=== PATIENT | male | born 1955 | race Two or more races ===

== ENCOUNTER 2025-02-14 06:56 | Inpatient (IN) | payer MEDICARE ==
[2025-02-14] VITALS (11 sets, daily range): BP systolic 113–129; BP diastolic 65–77; PULSE 50–58; RESP 12–19; TEMP 97.5–98.2; O2SAT 94–98
[~2025-02-14] VITALS: Ht 175.3 cm; Wt 93.6 kg
[~2025-02-14 06:56] MED LIST: AMLO1TAB23 PO; ASPI1TAB19 PO; ATOR20TA50 PO; CYAN1TAB11 PO; LOSA-534 PO
[2025-02-14] MEDS: IODIXANOL 320MG/ML 100ML BTL IV ONE ×2 (07:33→08:28)
[2025-02-14] MEDS: VERAPAMIL 2.5MG/ML INJ 2ML VIAL IV ONE (07:54)
[2025-02-14] MEDS: ANGIOMAX 250 MG VIAL IV ONE (07:54)
[2025-02-14] MEDS: fentaNYL CITRATE 100 MCG/2 ML VL ONE (07:54)
[2025-02-14] MEDS: MIDAZOLAM HCL 2MG/2ML 2ml VIAL (1mg/ml) ONE (07:55)
[2025-02-14] MEDS: SODIUM CHL 0.9% 50 ML ONE (07:55)
[2025-02-14] MEDS: LIDOCAINE 2%HCL (LOCAL ANESTH.) INJ 20ML MDV ONE (07:55)
[2025-02-14] MEDS: TICAGRELOR 90 MG TAB ONE (08:40)
[2025-02-14] MEDS ORDERED: MORPHINE SULFATE INJ 2 MG/ml SYRG IV PRN (08:45)
[2025-02-14] MEDS ORDERED: NITROGLYCERIN 0.4 MG SL TAB SL PRN (08:45)
--- NOTE | 2025-02-14 08:45 | DVHOP2 ---
Operative Report Operative Report CARDIAC DRILL OPERATOR AUTOMATIC PROCEDURE REPORT [place], [place] Date of Service: 02/14/25 Spinning Frame Fixer: John Paul Driver MD PROCEDURES PERFORMED: Coronary angiogram, left heart catheterization, conscious sedation administration and supervision, less than 15 minutes; fluoroscopy use and interpretation. sedation 15-30 mins, PTCA 1 vessel, PCI 1 vessel PREOPERATIVE DIAGNOSES: high risk CTA with Diag lesion >85% POSTOP DIAGNOSIS: 1v cad DESCRIPTION OF PROCEDURE: The patient or appropriate family signed informed consent understanding the risks, benefits and alternatives of the procedure, they wished to proceed. The patient was brought to the cardiac medical laboratory manager [place]. The patient was prepped in a sterile fashion. Sedation was used per cardiac cath protocol. I administered 2 mL of 2% lidocaine to the right wrist. With an antegrade front wall puncture. I cannulated the right radial artery and placed a 6-Colombian Glidesheath slender. Next, an intra-arterial spasmolytic was administered. Next, a - 5 Colombian Jackson catheter andXB 3.5 guide and were used for coronary angiogram and LVEDP measurement and pressure pullback. At the completion of procedure, all guides and wires were removed, and there were no immediate complications. FINDINGS: RCA: Moderate vessel off the right sinus of Valsalva, there is no severe flow limiting stenosis. prox mid and distal RCA are patent with diffuse luminal irregularities rpDA has 20% stenosis LEFT MAIN: Moderate size left main, it bifurcates into LAD and circumflex. no severe stenosis CIRCUMFLEX: Moderate caliber vessel coming off the left main with no flow limiting stenosis. LAD: LAD is a moderate caliber vessel coming of the left main. D1 has a prox 99% stenosis. D2 has an ostial 40% plaque. prox and mid LAD are patent with mild plaquing. mid to distal LAD has 40% stenosis INTERVENTION: We decided to proceed with coronary intervention. I started with a 6F ___ xb3.5 _ Guide to intubate the LM __. Angiomax bolus and gtt was started. Following this, I decided to wire using an .014 BMW across the culprit lesion with ease. At this time, we performed balloon angioplasty with a _2.5 x 12 mm balloon 12___ ATMS over __15__ seconds wit2__ number of inflations. Following this, I decided to place a stent using a 2.5 x 15 mm onyx____ stent inflated up to __16 __ ATMS over 15 seconds with two separate inflations. Following this, the stent balloon removed and angio performed showing 0% residual stenosis. GONZÁLEZ pre/post: 3./3 CONCLUSIONS: 1. s/p pci to D1 99% prox lesion PLAN: Aggressive risk factor modification and medical management for the patient. DAPT x 1 year uninterrupted JOHN PAUL DRIVER MD Feb 14, 2025 08:45
--- NOTE | 2025-02-14 12:59 | DVHHP2 ---
Review of Systems Allergies: Coded Allergies: NO KNOWN ALLERGIES (Unverified , 02/11/25) Medications Current Medications Medications Dose Ordered Sig/Rosalie Route Start Time Stop Time Status Last Admin Dose Admin Nitroglycerin 0.4 mg Q5MINP PRN SL 02/14/25 08:45 Morphine Sulfate 2 mg Q30M PRN IV 02/14/25 08:45 Clopidogrel Bisulfate 75 mg DAILY PO 02/15/25 10:00 Exam Vital Signs Vital Signs Date Time Temp Pulse Resp B/P (MAP) Pulse Ox O2 Delivery O2 Flow Rate FiO2 02/14/25 11:11 53 12 128/72 (90) 97 02/14/25 09:56 98.2 98.2 Assessment/Plan Assessment/Plan SEE DICTATED NOTE Plan discussed with: Patient, Spouse Date of Service: Feb 14, 2025 Billing Provider: JAGUAR GARCIA MD Common Visit Codes: 43067-BOIEBBB INP/OBS CARE (HIGH) Secondary Visit Codes: 75804-EYPMPGLX CARE PLAN 30 MINUTES JAGUAR GARCIA MD Feb 14, 2025 12:59
--- NOTE | 2025-02-14 13:31 | DVH ---
EXAM: XY CHEST PORTABLE Indication: CAD Technique: Single frontal view of the chest was obtained Comparison: None FINDINGS: Lines and Tubes: None Lungs: No focal consolidation. Pleura: No effusion. No pneumothorax. Cardiomediastinal contours: Cardiomegaly. Bones: No acute osseous abnormality. IMPRESSION: Cardiomegaly.
--- NOTE | 2025-02-14 14:23 | DVHHP ---
HISTORY OF PRESENT ILLNESS: The patient is a 69-year-old gentleman who has come in with episodes of ongoing chest pain, which have been increasing in frequency and intensity. The patient denies any shortness of breath. No nausea or vomiting. No dizziness or syncope. No pedal edema. REVIEW OF SYSTEMS: Review of rest of systems is otherwise currently negative. PAST MEDICAL HISTORY: Significant for hypertension and hyperlipidemia. MEDICATIONS: He takes Lipitor, amlodipine, and losartan. ALLERGIES: No known drug allergies. SOCIAL HISTORY: He does not smoke. He drinks about 3 beers a day. He lives at home with his . FAMILY HISTORY: Negative. PHYSICAL EXAMINATION: GENERAL: The patient is awake and alert. VITAL SIGNS: Temperature of 98.2, pulse 50 per minute, blood pressure 117/77. SHEENT: Unremarkable. NECK: There is no JVD, no pedal edema. LUNGS: Equal bilaterally. No added sounds. CARDIOVASCULAR: S1 and S2 is regular. There are no murmurs. ABDOMEN: Soft. There is no organomegaly. NEUROLOGIC: Nonfocal. MUSCULOSKELETAL: Normal. ASSESSMENT AND PLAN: * Hypertension for which the patient's blood pressure will be monitored. * Hyperlipidemia. * Coronary artery disease, status post stent placement in the diagonal. * Obesity. * Advanced care planning: The patient is a full code. Time spent was 18 minutes. MD NOAH Bah/LUIS TID: [id number] RECEIPT: [id number]
[2025-02-14] MEDS: CLOPIDOGREL BISULFATE 75 MG TAB PO ONE (16:49)
[2025-02-14] MEDS: ATORVASTATIN 20 MG TAB PO SCH (21:13)
[2025-02-15 01:00] VITALS: BP 126/80; PULSE 57; RESP 20; TEMP 97.8; O2SAT 96
[2025-02-15 05:00] VITALS: BP 124/74; PULSE 55; RESP 18; TEMP 98.1; O2SAT 95
[2025-02-15 06:30] LABS: Hematocrit 38.9 % (41.0-53.0); Hemoglobin 13.4 g/dL (13.5-17.5); Mean Corpuscular Hemoglobin 30.6 pg (28.0-32.0); Mean Corpuscular Volume 88.7 fL (80.0-100.0); Nucleated Red Blood Cells % 0.0 %
[2025-02-15 06:48] LABS: Alanine Aminotransferase 15 U/L (7-40); Albumin 4.1 g/dL (3.2-4.8); Alkaline Phosphatase 66 U/L (46-116); Anion Gap 7 (5-15); BUN/Creatinine Ratio 14.3 (10.0-20.0); Bilirubin, Total 1.0 mg/dL (0.2-1.0); Blood Urea Nitrogen 15 mg/dL (9-23); Calcium 9.6 mg/dL (8.7-10.4); Carbon Dioxide 24 mmol/L (20-31); Cholesterol 110 mg/dL (< 200); Glucose 93 mg/dL (74-106); Potassium 3.9 mmol/L (3.5-5.1); Sodium 141 mmol/L (136-145); Total Protein 6.2 g/dL (5.7-8.2); Triglycerides 109 mg/dL (< 150)
[2025-02-15 07:02] LABS: Chloride 110 mmol/L (98-107); HDL Cholesterol 38 mg/dL (40-59)
[2025-02-15 08:00] VITALS: PULSE 55
[2025-02-15 09:00] VITALS: BP 120/64; PULSE 63; RESP 18; TEMP 97.4; O2SAT 95
[2025-02-15] MEDS: CLOPIDOGREL BISULFATE 75 MG TAB PO SCH (09:55)
--- NOTE | 2025-02-15 11:46 | DVHDS2 ---
Discharge Summary Date of Admission Feb 14, 2025 at 08:45 Date of Discharge: Feb 15, 2025 Labs/Diagnostic Data: Laboratory Results Test 02/15/25 05:31 White Blood Count 5.3 10^3/uL (4.4-10.8) Red Blood Count 4.39 10^6/uL (4.5-5.90) Hemoglobin 13.4 g/dL (13.5-17.5) Hematocrit 38.9 % (41.0-53.0) Mean Corpuscular Volume 88.7 fL (80.0-100.0) Mean Corpuscular Hemoglobin 30.6 pg (28.0-32.0) Mean Corpuscular Hemoglobin Concent 34.5 g/dL (32.0-36.0) Red Cell Distribution Width 14.2 % (11.8-14.3) Platelet Count 225 10^3/uL (140-450) Mean Platelet Volume 7.5 fL (6.9-10.8) Neutrophils (%) (Auto) 62.0 % (37.0-80.0) Lymphocytes (%) (Auto) 22.8 % (10.0-50.0) Monocytes (%) (Auto) 9.6 % (0.0-12.0) Eosinophils (%) (Auto) 4.8 % (0.0-7.0) Basophils (%) (Auto) 0.8 % (0.0-2.0) Neutrophils # (Auto) 3.3 10 ^3/uL (1.6-8.6) Lymphocytes # (Auto) 1.2 10 ^3/uL (0.4-5.4) Monocytes # (Auto) 0.5 10 ^3/uL (0-1.3) Eosinophils # (Auto) 0.3 10 ^3/uL (0-0.8) Basophils # (Auto) 0 10 ^3/uL (0-0.2) Nucleated Red Blood Cells 0.0 % Sodium Level 141 mmol/L (136-145) Potassium Level 3.9 mmol/L (3.5-5.1) Chloride Level 110 mmol/L (98-107) Carbon Dioxide Level 24 mmol/L (20-31) Anion Gap 7 (5-15) Blood Urea Nitrogen 15 mg/dL (9-23) Creatinine 1.05 mg/dL (0.700-1.30) Glomerular Filtration Rate Calc 76 mL/min (>90) BUN/Creatinine Ratio 14.3 (10.0-20.0) Serum Glucose 93 mg/dL (74-106) Calcium Level 9.6 mg/dL (8.7-10.4) Total Bilirubin 1.0 mg/dL (0.2-1.0) Aspartate Amino Transferase (AST) 11 U/L (13-40) Alanine Aminotransferase (ALT) 15 U/L (7-40) Alkaline Phosphatase 66 U/L (46-116) Total Protein 6.2 g/dL (5.7-8.2) Albumin 4.1 g/dL (3.2-4.8) Triglycerides Level 109 mg/dL (< 150) Cholesterol Level 110 mg/dL (< 200) LDL Cholesterol 55 mg/dL (< 100) HDL Cholesterol 38 mg/dL (40-59) Other Laboratory Tests 02/15/25 05:31 Brief Hx & Hospital Course: see dictated note Condition at Discharge: Fair Final Diagnosis/Problems List cad Discharge Disposition: Home Discharge Instruct/Medications Diet: Cardiac 2g Na,low cholest Activity: No Restrictions, As Tolerated Follow Up/Referral: fu with dr Khanna in 1 wk Medications: resume home meds, change in lipitor dose Scheduled Amlodipine Besylate (Amlodipine Besylate), 1 TAB PO QPM, (Reported) Aspirin (Aspirin), 1 TAB PO DAILY, (Reported) Atorvastatin Calcium (Atorvastatin Calcium), 1 TAB PO QPM, (Reported) Cyanocobalamin (Vitamin B12), 1 TAB PO DAILY, (Reported) Losartan Potassium (Losartan Potassium), 1 TAB PO QAM, (Reported) Discharge Statement: "Patient was advised to return to the ER or call 911 if any headaches, dizziness, shortness of breath, chest pain, abdominal pain, bleeding, fevers, or worsening of medical condition. Patient was counseled about treatment plan, medications, possible side effects, patientverbalized understanding. All questions were answered to the best of my ability. This discharge took greater then 30 minutes in planning, reviewing documentation, counseling the patient, and discussing with other team members." ASSESSMENT ASSESSMENT Assessment cad Date of Service: Feb 15, 2025 Billing Provider: JAGUAR GARCIA MD Common Visit Codes: 75653-EMJ/OBS DISCH DAY >30min JAGUAR GARCIA MD Feb 15, 2025 11:46
[2025-02-15] MEDS ORDERED: ATOR-47 PO (11:48)
[2025-02-15] MEDS ORDERED: CLOP75TA28 PO (11:48)
[2025-02-15] MEDS ORDERED: ASPI1TAB20 PO (11:48)
--- NOTE | 2025-02-15 11:57 | DVHDS ---
HISTORY OF PRESENT ILLNESS: The patient is a 69-year-old gentleman who is admitted with complaints of chest pain and underwent a coronary angiography. The patient has history of hypertension and hyperlipidemia. HOSPITAL COURSE: The patient underwent coronary angiography with stenting of the diagonal 1. The patient had a chest x-ray that showed cardiomegaly. The patient currently is chest pain-free and has been cleared for discharge by Dr. Cunningham. He will be discharged to resume his home medications except his Lipitor will be increased to 80 mg at bedtime along with aspirin 81 mg daily and Plavix 75 mg daily. No beta-marco a was prescribed in view of bradycardia. FINAL DIAGNOSES: * Coronary artery disease status post coronary angiography and stenting. * Hypertension. * Hyperlipidemia. * Obesity. * Bradycardia. Time spent in discharge planning and review of plan with the patient, family, and reporting process consultant was 38 minutes. MD NOAH Bah/ROLANDO TID: [id number] RECEIPT: [id number]
[2025-02-15 12:09] VITALS: BP 120/64; PULSE 63; RESP 18; TEMP 97.4; O2SAT 95
== END 2025-02-15 13:15 | disposition home or self-care (01) | DRG 322 ==
LOC: CATH 06:56 → OVERFLOW 08:45 → TELE-WESTW 11:46
PROVIDERS: ADMIT Internal Medicine; ATTEND Internal Medicine
PROC: 027034Z Dilation of Coronary Artery, One Artery with Drug-eluting Intraluminal Device, Percutaneous Approach (ICD-10-PCS; principal; 2025-02-14)
PROC: 4A023N7 Measurement of Cardiac Sampling and Pressure, Left Heart, Percutaneous Approach (ICD-10-PCS; 2025-02-14)
PROC: B211YZZ Fluoroscopy of Multiple Coronary Arteries using Other Contrast (ICD-10-PCS; 2025-02-14)
DX: I25.10 Atherosclerotic heart disease of native coronary artery without angina pectoris (principal); E78.5 Hyperlipidemia, unspecified; E66.9 Obesity, unspecified; I10 Essential (primary) hypertension; Z79.82 Long term (current) use of aspirin; Z79.02 Long term (current) use of antithrombotics/antiplatelets; Z68.30 Body mass index [BMI] 30.0-30.9, adult; Z79.899 Other long term (current) drug therapy
CPT/HCPCS: 36415; 71045; 80053; 80061; 85025; 99152; C1874; G0378; J2250; Q9967

== ENCOUNTER 2025-05-24 14:20 | Inpatient (IN) | payer MEDICARE ==
[~2025-05-24] VITALS: Ht 175.3 cm; Wt 98.1 kg
[~2025-05-24 14:20] MED LIST changes: +ASPI1TAB20 PO; +ATOR-47 PO; +CLOP75TA28 PO
--- NOTE | 2025-05-24 15:09 | ED.PDOC ---
History of Present Illness HPI Comments 69 y/o M, with PMHx of CAD presents to the ED for CC of abnormal lab's. Patient states, he was sent by PCP for Admission d/t needed observation while being off blood thinners for an endoscopy. Patient reports, additional symptoms of blood stools and fatigue in relation. Patient denies nausea, vomiting, dizziness, or faintness. Chief Complaint: Abnormal LAB's Time Seen by MD: 15:00 Reviewed Notes: Nurses Notes, Medications, Allergies Allergies: Coded Allergies: NO KNOWN ALLERGIES (Unverified , 02/11/25) Home Meds Active Scripts Atorvastatin Calcium (ATORVASTATIN CALCIUM) 80 Mg Tab, 80 MG PO QPM for 30 Days, #30 TAB 3 Refills Prov:JAGUAR GARCIA MD 02/15/25 Clopidogrel Bisulfate (Plavix) 75 Mg Tab, 75 MG PO DAILY for 30 Days, #30 TAB 3 Refills Prov:JAGUAR GARCIA MD 02/15/25 Aspirin (Aspir-81) 81 Mg Tab, 81 MG PO DAILY for 30 Days, #30 TAB 3 Refills Prov:JAGUAR GARCIA MD 02/15/25 Reported Medications Cyanocobalamin (Vitamin B12) 1,000 Mcg Tab, 1 TAB PO DAILY for SUPPLEMENT 02/11/25 Amlodipine Besylate (Amlodipine Besylate) 10 Mg Tab, 1 TAB PO QPM for HYPERTENSION 02/11/25 Losartan Potassium (Losartan Potassium) 50 Mg Tab, 1 TAB PO QAM for HYPERTENSION 02/11/25 Aspirin (Aspirin) 81 Mg Tab, 1 TAB PO DAILY for HEART ATTACK PREVENTION 02/11/25 Atorvastatin Calcium (ATORVASTATIN CALCIUM) 20 Mg Tab, 1 TAB PO QPM for HIGH CHOLESTEROL 02/11/25 Information Source: Patient Mode of Arrival: Ambulatory Severity: Moderate Timing: Minutes Duration: Since onset Prehospital treatment: None Past Medical History PAST MEDICAL HISTORY: CAD Surgical History: Denies all surgeries Family History Family History: Unknown Social History Smoker: Non-Smoker Alcohol: Occasionally Drugs: Denies Drug Use Lives In: Home Constitutional: reports: fatigue, weakness; denies: chills, diaphoresis, fever, malaise, sweats, others EENTM: denies: blurred vision, double vision, ear bleeding, ear discharge, ear drainage, ear pain, ear ringing, eye pain, eye redness, hearing loss, mouth pain, mouth swelling, nasal discharge, nose bleeding, nose congestion, nose pain, photophobia, tearing, throat pain, throat swelling, voice changes, others Respiratory: denies: cough, hemoptysis, orthopnea, SOB at rest, shortness of breath, SOB with excertion, stridor, wheezing, others Cardiovascular: denies: chest pain, dizzy spells, diaphoresis, Dyspnea on exertion, edema, irregular heart beat, left arm pain, lightheadedness, palpitations, PND, syncope, others Gastrointestinal: denies: abdomen distended, abdominal pain, blood streaked bowels, constipated, diarrhea, dysphagia, difficulty swallowing, hematemesis, melena, nausea, poor appetite, poor fluid intake, rectal bleeding, rectal pain, vomiting, others Genitourinary: denies: burning, dysuria, flank pain, frequency, hematuria, incontinence, penile discharge, penile sore, pain, testicle pain, testicle swelling, urgency, others Neurological: denies: dizziness, fainting, headache, left sided numbness, left sided weakness, numbness, paresthesia, pre-existing deficit, right sided numbness, right sided weakness, seizure, speech problems, tingling, tremors, weakness, others Musculoskeletal: denies: back pain, gout, joint pain, joint swelling, muscle pain, muscle stiffness, neck pain, others Integumetry: denies: bruises, change in color, change in hair/nails, dryness, laceration, lesions, lumps, rash, wounds, others Allergic/Immunocompromised: denies: Difficulty Healing, Frequent Infections, Hives, Itching, others Hematologic/Lymphatic: denies: anemia, blood clots, easy bleeding, easy bruising, swollen glands, others Endocrine: denies: excessive hunger, excessive sweating, excessive thirst, excessive urination, flushing, intolerance to cold, intolerance to heat, unexplained weight gain, unexplained weight loss, others Psychiatric: denies: anxiety, bipolar disorder, depression, hopeless, panic disorder, schizophrenia, sleepless, suicidal, others All Other Systems: Reviewed and Negative Physical Exam General Appearance: No Apparent Distress, Normal HEENT: Normal ENT Inspection, Pharynx Normal Neck: Full Range of Motion, Non-Tender, Normal, Normal Inspection Respiratory: Chest Non-Tender, Lungs Clear, No Accessory Muscle Use, No Respiratory Distress, Normal Breath Sounds Cardiovascular: No Edema, No Murmur, No Gallop, Normal Peripheral Pulses, Regular Rate/Rhythm Breast Exam: Deferred Gastrointestinal: No Organomegaly, Non Tender, No Pulsatile Mass, Normal Bowel Sounds, Soft Genitalia: Deferred Pelvic: Deferred Rectal: Deferred Extremities: No calf tenderness, Normal capillary refill, Normal inspection, Normal range of motion, Non-tender, No pedal edema Musculoskeletal : Apperance: Normal Neurologic: Alert, sales associate fishing II-XII nml as Tested, No Motor Deficits, Normal Affect, Normal Mood, No Sensory Deficits Cerebellar Function: Normal Reflexes: Normal Skin: Dry, Normal Color, Warm Lymphatic: No Adenopathy Was a procedure done? Was a procedure done?: No Differential Dx Considerations may include: ANEMIA, GI bleed, preop management X-Ray, Labs, Meds, VS Vital Signs Date Time Temp Pulse Resp B/P (MAP) Pulse Ox O2 Delivery O2 Flow Rate FiO2 05/24/25 16:13 54 18 96 Room Air 05/24/25 16:13 57 18 137/60 (85) 97 05/24/25 14:37 60 05/24/25 14:23 98.3 63 18 137/69 97 98.3 Lab Test 05/24/25 15:14 Range/Units White Blood Count 5.9 4.4-10.8 10^3/uL Red Blood Count 2.86 L 4.5-5.90 10^6/uL Hemoglobin 8.3 L 13.5-17.5 g/dL Hematocrit 24.6 L 41.0-53.0 % Mean Corpuscular Volume 86.2 80.0-100.0 fL Mean Corpuscular Hemoglobin 29.2 28.0-32.0 pg Mean Corpuscular Hemoglobin Concent 33.8 32.0-36.0 g/dL Red Cell Distribution Width 16.0 H 11.8-14.3 % Platelet Count 346 140-450 10^3/uL Mean Platelet Volume 7.3 6.9-10.8 fL Neutrophils (%) (Auto) 70.1 37.0-80.0 % Lymphocytes (%) (Auto) 18.9 10.0-50.0 % Monocytes (%) (Auto) 6.4 0.0-12.0 % Eosinophils (%) (Auto) 4.0 0.0-7.0 % Basophils (%) (Auto) 0.6 0.0-2.0 % Neutrophils # (Auto) 4.2 1.6-8.6 10 ^3/uL Lymphocytes # (Auto) 1.1 0.4-5.4 10 ^3/uL Monocytes # (Auto) 0.4 0-1.3 10 ^3/uL Eosinophils # (Auto) 0.2 0-0.8 10 ^3/uL Basophils # (Auto) 0 0-0.2 10 ^3/uL Nucleated Red Blood Cells 0.0 % Sodium Level 142 136-145 mmol/L Potassium Level 4.0 3.5-5.1 mmol/L Chloride Level 108 H 98-107 mmol/L Carbon Dioxide Level 24 20-31 mmol/L Anion Gap 10 5-15 Blood Urea Nitrogen 13 9-23 mg/dL Creatinine 1.34 H 0.700-1.30 mg/dL Glomerular Filtration Rate Calc 57 >90 mL/min BUN/Creatinine Ratio 9.7 L 10.0-20.0 Serum Glucose 114 H 74-106 mg/dL Calcium Level 8.8 8.7-10.4 mg/dL Time of 1ST Reevaluation: 15:30 Reevaluation 1ST: Unchanged Patient Education/Counseling: Diagnosis, Treatment Family Education/Counseling: No Family Present Comments This is a patient who is on Plavix and is going to undergo an EGD. His doctor wants him to be admitted as he is taken off the Plavix abrasion for EGD. Patient was sent in by Dr. Keke REILLY, who wants do EGD. Patient has had a stent put in on February 14 of this year. He is on Plavix. I consulted hospitalist. Patient will be admitted and Cardiology we will be consulted for management of the Plavix treatment prior to EGD. His hemoglobin has a should improve from the mid seven range from Dr. Jimenez in his lap he does have worsening of kidney function. Additional Information Reviewed patient's previous visit(s): 02/14/25 DX:CAD The following tests were ordered, and results were reviewed by me: CBC, BMP, EKG X1 I discussed treatments and results with medical personnel and: PATIENT Comprehensive systems review obtained and negative except for what is stated in the HPI. SEPSIS Sepsis Screen Date sepsis recognized/suspect: May 24, 2025 Time Sepsis recognized/suspect: 1423 Recent Procedure: No On Antibiotic Therapy: No Respiratory Rate >20: No Heart Rate >90: No Temp<36 C (96.8 F) or >38.3 C: No SBP <90 or MAP <65 mmHG: No New Acute Mental Status Change: No Is the patient on CPAP, BIPAP,: No Physician Orders * Cardiology Consult (05/24/25 16:51) Vital Signs Date Time Temp Pulse Resp B/P (MAP) Pulse Ox O2 Delivery O2 Flow Rate FiO2 05/24/25 16:13 54 18 96 Room Air 05/24/25 16:13 57 18 137/60 (85) 97 05/24/25 14:37 60 05/24/25 14:23 98.3 63 18 137/69 97 98.3 Laboratory Tests Test 05/24/25 15:14 White Blood Count 5.9 10^3/uL (4.4-10.8) Departure 1 Departure Time of Disposition: 16:54 Impression: Primary Impression: GI bleed Additional Impressions: Anemia Coronary artery disease Renal failure Disposition: ADMITTED INPATIENT Admit to: Tele Condition: Stable Discharged With: Self, Spouse Critical Care Note Critical Care Time?: No Stability Stability form required: No Heart Score Heart Score: Heart Score Response (Comments) Value History N/A 0 EKG N/A 0 Age N/A 0 Risk Factors N/A 0 Troponin N/A 0 Total 0 I personally scribed for GARFIELD HERRERA MD ([email or web address]) on 05/24/25 at 15:09. Electronically submitted by Klaudia Mendoza ([email or web address]). I personally scribed for GARFIELD HERRERA MD ([email or web address]) on 05/24/25 at 16:48. Electronically submitted by Klaudia Mendoza ([email or web address]). GARFIELD HERRERA MD May 24, 2025 15:09
[2025-05-24 15:38] LABS: Hemoglobin 8.3 g/dL (13.5-17.5)
[2025-05-24 15:39] LABS: Hematocrit 24.6 % (41.0-53.0); Mean Corpuscular Hemoglobin 29.2 pg (28.0-32.0); Mean Corpuscular Volume 86.2 fL (80.0-100.0); Nucleated Red Blood Cells % 0.0 %
[2025-05-24 15:44] LABS: Potassium 4.0 mmol/L (3.5-5.1); Sodium 142 mmol/L (136-145)
[2025-05-24 15:45] LABS: Anion Gap 10 (5-15); Carbon Dioxide 24 mmol/L (20-31)
[2025-05-24 15:46] LABS: Calcium 8.8 mg/dL (8.7-10.4)
--- NOTE | 2025-05-24 15:49 | ECG ---
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
[2025-05-24 15:51] LABS: BUN/Creatinine Ratio 9.7 (10.0-20.0); Blood Urea Nitrogen 13 mg/dL (9-23)
[2025-05-24 15:54] LABS: Chloride 108 mmol/L (98-107); Glucose 114 mg/dL (74-106)
--- NOTE | 2025-05-24 18:09 | DVHHP2 ---
History of Present Illness History of Present Illness Patient is 69-year-old male with past medical history of CAD, status post PCI to do 1 in January, by Dr. Khanna, hypertension, hyperlipidemia came with a complaint of GI bleeding. As per patient he has been having black stool for last 10 days and feeling tired and fatigued, patient also reported feeling exertional shortness of breaths. As per patient he had a scheduled for EGD on 05/26/[address] Davies. But patient reported he was sent by his PCP to go to ER due to abdominal lab workup. Patient reported he is taking his Plavix regularly. As per patient and his family when patient started taking Plavix history get nosebleeds and ecchymosis but lately it stopped. Patient denied any diarrhea, abdominal pain, dysuria, chest pain, dysarthria or change in vision. Initial lab workup revealed hemoglobin 8.3, RDW 16.6, serum creatinine 1.34. PMH-CAD, status post PCI to do 1 in January, by Dr. Khanna, hypertension, hyperlipidemia PSH- right-sided inguinal hernia surgery Allergy- NKDA Personal History/ Social History- denies smoking, drinks beer 3-4 a day, denies substance abuse, lives with at home ROS Cardiovascular- deny acute chest pain or shortness of breath or cough or palpitation Respiratory denies cough or short of breath or wheezing Musculoskeletal-denies acute joint swelling or tenderness or redness Neurological- denies acute dysarthria, dysphagia, change in vision Psychiatry- denies depression or SI or HI Skin- denies acute rash or purpura Review of Systems Allergies: Coded Allergies: NO KNOWN ALLERGIES (Unverified , 02/11/25) Medications Current Medications Medications Dose Ordered Sig/Rosalie Route Start Time Stop Time Status Last Admin Dose Admin Sodium Chloride 1,000 ml @ 120 mls/hr [id number] IV 05/24/25 18:15 UNV Exam Vital Signs Vital Signs Date Time Temp Pulse Resp B/P (MAP) Pulse Ox O2 Delivery O2 Flow Rate FiO2 05/24/25 17:34 98.6 52 20 135/52 (79) 98 98.6 05/24/25 16:13 Room Air Exam General examination- pale conjunctiva HEENT- PEERLA, no acute nasal discharge Cardiovascular- S1-S2 audible, rate and rhythm regular, no murmur Respiratory- CTAB, no wheeze or rhonchi Gastrointestinal-nontender, bowel sound+. Nondistended Musculoskeletal-no acute joint swelling or tenderness or redness Lower extremity- no leg edema Neurological- cranial nerves intact, no acute dysarthria or dysphagia Psychiatry- denies depression or SI or HI Skin- no acute rash or purpura Labs/Xrays Labs Test 05/24/25 15:14 Range/Units White Blood Count 5.9 4.4-10.8 10^3/uL Red Blood Count 2.86 L 4.5-5.90 10^6/uL Hemoglobin 8.3 L 13.5-17.5 g/dL Hematocrit 24.6 L 41.0-53.0 % Mean Corpuscular Volume 86.2 80.0-100.0 fL Mean Corpuscular Hemoglobin 29.2 28.0-32.0 pg Mean Corpuscular Hemoglobin Concent 33.8 32.0-36.0 g/dL Red Cell Distribution Width 16.0 H 11.8-14.3 % Platelet Count 346 140-450 10^3/uL Mean Platelet Volume 7.3 6.9-10.8 fL Neutrophils (%) (Auto) 70.1 37.0-80.0 % Lymphocytes (%) (Auto) 18.9 10.0-50.0 % Monocytes (%) (Auto) 6.4 0.0-12.0 % Eosinophils (%) (Auto) 4.0 0.0-7.0 % Basophils (%) (Auto) 0.6 0.0-2.0 % Neutrophils # (Auto) 4.2 1.6-8.6 10 ^3/uL Lymphocytes # (Auto) 1.1 0.4-5.4 10 ^3/uL Monocytes # (Auto) 0.4 0-1.3 10 ^3/uL Eosinophils # (Auto) 0.2 0-0.8 10 ^3/uL Basophils # (Auto) 0 0-0.2 10 ^3/uL Nucleated Red Blood Cells 0.0 % Sodium Level 142 136-145 mmol/L Potassium Level 4.0 3.5-5.1 mmol/L Chloride Level 108 H 98-107 mmol/L Carbon Dioxide Level 24 20-31 mmol/L Anion Gap 10 5-15 Blood Urea Nitrogen 13 9-23 mg/dL Creatinine 1.34 H 0.700-1.30 mg/dL Glomerular Filtration Rate Calc 57 >90 mL/min BUN/Creatinine Ratio 9.7 L 10.0-20.0 Serum Glucose 114 H 74-106 mg/dL Calcium Level 8.8 8.7-10.4 mg/dL SEPSIS Sepsis Screen Date sepsis recognized/suspect: May 24, 2025 Time Sepsis recognized/suspect: 1423 Recent Procedure: No On Antibiotic Therapy: No Respiratory Rate >20: No Heart Rate >90: No Temp<36 C (96.8 F) or >38.3 C: No SBP <90 or MAP <65 mmHG: No New Acute Mental Status Change: No Is the patient on CPAP, BIPAP,: No Physician Orders * Cardiology Consult (05/24/25 16:51) Admit (05/24/25 18:06) Code Status (05/24/25 18:06) Sodium Chloride 0.9% (05/24/25 18:15) Complete Blood Count (05/25/25 04:00) Comprehensive Metabolic Panel (05/25/25 04:00) Npo (Nothing By Mouth) Diet (05/24/25 Dinner) Notify Md Of Changes From Base (05/24/25 18:06) Field Sales Agent For 24 Hours (05/24/25 18:06) Pantoprazole (Protonix) (05/24/25 18:15) Sequential Compression Device (05/24/25 18:08) Vital Signs Date Time Temp Pulse Resp B/P (MAP) Pulse Ox O2 Delivery O2 Flow Rate FiO2 05/24/25 17:34 98.6 52 20 135/52 (79) 98 98.6 05/24/25 16:13 54 18 96 Room Air 05/24/25 16:13 57 18 137/60 (85) 97 05/24/25 14:37 60 05/24/25 14:23 98.3 63 18 137/69 97 98.3 Laboratory Tests Test 05/24/25 15:14 White Blood Count 5.9 10^3/uL (4.4-10.8) Assessment/Plan Assessment/Plan Assessment and plan # acute GI bleeding # melena # [id number] anemia normocytic normochromic -continue pantoprazole as prescribed -continue IV fluid as prescribed -monitor H&H q.6 hours -pending GI consultation -blood transfusion if hemoglobin <8 -ordered typing and cross matching -ordered stool occult blood test -ordered iron profile # CAD, status post PCI to D1 # hyperlipidemia -continue Plavix 75 mg p.o. daily -continue atorvastatin -pending cardiology consult for clearance for possible endoscopy/colonoscopy # hypertension -monitor blood pressure # sinus bradycardia -monitor clinically Goals of care, Code status full code ; discussed with >15 minutes PUD prophylaxis: Pantoprazole DVT prophylaxis: SCD Plan discussed with Dr. Barnes , nursing staff, Total time spent on patient evaluation, chart review, assessment and plan, discussion discussion >35 minutes Plan discussed with: Patient, Other (RN) My Orders Orders - RICARDO SALGADO Procedure Category Date Status Time Admit ADMIT 05/24/25 Transmitted 18:06 Code Status CODE 05/24/25 Transmitted 18:06 Sodium Chloride 0.9% PHA 05/24/25 Logged 18:15 Complete Blood Count LAB 05/25/25 Verified 04:00 Comprehensive LAB 05/25/25 Verified Metabolic Panel 04:00 Npo (Nothing By DIET 05/24/25 Transmitted Mouth) Diet Dinner Notify Of Changes BILLIE 05/24/25 In Process From Base 18:06 Field Sales Agent For [facility] 05/24/25 In Process 24 Hours 18:06 Pantoprazole PHA 05/24/25 Verified (Protonix) 18:15 Sequential BILLIE 05/24/25 Verified Compression Device 18:08 Date of Service: May 24, 2025 Billing Provider: SEAN BARNES MD Common Visit Codes: [id number] INP/OBS CARE (HIGH) Secondary Visit Codes: [id number] CARE PLAN 30 MINUTES RICARDO SALGADO May 24, 2025 18:09
[2025-05-24 18:38] LABS: Hematocrit 24.3 % (41.0-53.0); Hemoglobin 8.2 g/dL (13.5-17.5); Mean Corpuscular Hemoglobin 29.3 pg (28.0-32.0); Mean Corpuscular Volume 87.1 fL (80.0-100.0); Nucleated Red Blood Cells % 0.1 %
[2025-05-24 18:44] LABS: Alanine Aminotransferase 16.0 U/L (7-40); Albumin 4.1 g/dL (3.2-4.8); Alkaline Phosphatase 75.0 U/L (46-116); Total Protein 6.4 g/dL (5.7-8.2)
[2025-05-24 18:45] LABS: Bilirubin, Direct 0.2 mg/dL (<0.3); Bilirubin, Total 0.6 mg/dL (0.2-1.0)
--- NOTE | 2025-05-24 18:46 | DVH ---
CLINICAL HISTORY: SOB TECHNIQUE: Single view of the chest was obtained. COMPARISON: XY CHEST PORTABLE on DOS: 02/14/25 FINDINGS: The heart size and pulmonary vasculature are normal. The lungs are clear. IMPRESSION: NO ACUTE CARDIOPULMONARY PROCESS.
[2025-05-24] MEDS: SODIUM CHLORIDE 0.9% 1,000 ML IV SCH (18:54)
[2025-05-24] MEDS: PANTOPRAZOLE 40 MG/10 ML VIAL INJ IV SCH (18:54)
[2025-05-24 18:57] LABS: INR 1.06 (0.9-1.15); Partial Thromboplastin Time 27.4 SEC (24.5-34.5); Prothrombin Time 11.2 sec (9.3-11.8)
[2025-05-24 20:46] LABS: Iron 48.0 ug/dL (65-175); Total Iron Binding Capacity 244.0 ug/dL (250-425)
[2025-05-24 23:00] VITALS: PULSE 60; RESP 16; O2SAT 98
[2025-05-25] VITALS (8 sets, daily range): BP systolic 115–144; BP diastolic 68–76; PULSE 51–57; RESP 17–19; TEMP 97.6–98.4; O2SAT 94–97
[2025-05-25 01:47] LABS: Hematocrit 22.6 % (41.0-53.0); Hemoglobin 7.6 g/dL (13.5-17.5)
[2025-05-25 06:52] LABS: Hematocrit 22.9 % (41.0-53.0); Hemoglobin 7.8 g/dL (13.5-17.5)
[2025-05-25 07:13] LABS: Alanine Aminotransferase 14 U/L (7-40); Alkaline Phosphatase 65 U/L (46-116); Anion Gap 10 (5-15); BUN/Creatinine Ratio 11.8 (10.0-20.0); Blood Urea Nitrogen 14 mg/dL (9-23); Carbon Dioxide 23 mmol/L (20-31); Glucose 91 mg/dL (74-106); Potassium 4.1 mmol/L (3.5-5.1); Sodium 144 mmol/L (136-145); Total Protein 5.7 g/dL (5.7-8.2)
[2025-05-25 07:14] LABS: Albumin 3.7 g/dL (3.2-4.8)
[2025-05-25 07:15] LABS: Bilirubin, Total 0.5 mg/dL (0.2-1.0)
[2025-05-25 07:18] LABS: Calcium 8.2 mg/dL (8.7-10.4); Chloride 111 mmol/L (98-107)
[2025-05-25 07:44] LABS: Urine Protein, UAD Normal (Negative)
[2025-05-25] MEDS: PANTOPRAZOLE 40 MG/10 ML VIAL INJ IV SCH (09:36)
[2025-05-25] MEDS: CYANOCOBALAMIN 500 MCG TAB PO SCH (09:37)
[2025-05-25] MEDS ORDERED: CLOPIDOGREL BISULFATE 75 MG TAB PO SCH (10:00)
[2025-05-25 11:49] LABS: Hepatitis C Antibody Negative (Negative)
[2025-05-25 11:50] LABS: Hepatitis B Surface Antigen Negative (Negative)
[2025-05-25 13:59] LABS: Hematocrit 22.8 % (41.0-53.0); Hemoglobin 7.6 g/dL (13.5-17.5)
--- NOTE | 2025-05-25 17:35 | DVHPNRES ---
Progress Note Date Seen: May 25, 2025 Resident Creating Document: RICARDO SALGADO RESIDENT Medical Necessity Reason Pt with a Central, PICC or Fol: No Subjective Review of Systems Patient is 69-year-old male with past medical history of CAD, status post PCI to do 1 in January, by Dr. Khanna, hypertension, hyperlipidemia came with a complaint of GI bleeding. As per patient he has been having black stool for last 10 days and feeling tired and fatigued, patient also reported feeling exertional shortness of breaths. As per patient he had a scheduled for EGD on 05/26/[address] Davies. But patient reported he was sent by his PCP to go to ER due to abdominal lab workup. Patient reported he is taking his Plavix regularly. As per patient and his family when patient started taking Plavix history get nosebleeds and ecchymosis but lately it stopped. Patient denied any diarrhea, abdominal pain, dysuria, chest pain, dysarthria or change in vision. Initial lab workup revealed hemoglobin 8.3, RDW 16.6, serum creatinine 1.34. PMH-CAD, status post PCI to do 1 in January, by Dr. Khanna, hypertension, hyperlipidemia PSH- right-sided inguinal hernia surgery Allergy- NKDA Personal History/ Social History- denies smoking, drinks beer 3-4 a day, denies substance abuse, lives with at home ROS Cardiovascular- deny acute chest pain or shortness of breath or cough or palpitation Respiratory denies cough or short of breath or wheezing Musculoskeletal-denies acute joint swelling or tenderness or redness Neurological- denies acute dysarthria, dysphagia, change in vision Psychiatry- denies depression or SI or HI Skin- denies acute rash or purpura Patient was seen today at bedside, labs and chart reviewed. Stool occult blood test NEGATIVE. Iron profile revealed iron 48, ferritin 16.9. Spoke to Dr. Davies, shopping centre manager recommended to IV iron once then continue ferrous sulfate. Recommended to do a cardiology consult to get clearance for endoscopy and colonoscopy possibly tomorrow evening or Friday morning. Hold Plavix for now. Hemoglobin 7.6 Objective vital signs Vital Sign Date Time Temp Pulse Resp B/P (MAP) Pulse Ox O2 Delivery O2 Flow Rate FiO2 05/25/25 09:00 97.9 53 18 144/74 (97) 97 97.9 10/8/25 08:08 Room Air* 0 21 Total Intake and Output 05/24/25 05/24/25 05/25/25 15:00 23:00 07:00 Intake Total 550 ml Balance 550 ml medications Current Medications Medications Dose Ordered Sig/Rosalie Route Start Time Stop Time Status Last Admin Dose Admin Atorvastatin Calcium 20 mg QPM PO 05/25/25 18:00 Clopidogrel Bisulfate 75 mg DAILY PO 05/25/25 10:00 Hold Cyanocobalamin 1,000 mcg DAILY PO 05/25/25 10:00 05/25/25 09:37 1,000 MCG Pantoprazole Sodium 40 mg BID IV 05/25/25 10:00 05/25/25 09:36 40 MG Examination General examination- pale conjunctiva HEENT- PEERLA, no acute nasal discharge Cardiovascular- S1-S2 audible, rate and rhythm regular, no murmur Respiratory- CTAB, no wheeze or rhonchi Gastrointestinal-nontender, bowel sound+. Nondistended Musculoskeletal-no acute joint swelling or tenderness or redness Lower extremity- no leg edema Neurological- cranial nerves intact, no acute dysarthria or dysphagia Psychiatry- denies depression or SI or HI Skin- no acute rash or purpura laboratory and microbiology Laboratory Tests 05/25/25 13:30 05/25/25 06:13 05/24/25 18:19 Test 05/25/25 06:13 Range/Units Serum Glucose 91 74-106 mg/dL Problem List/Assessment/Plan Problem List/Assessment/Plan Assessment and plan # acute GI bleeding # melena # [id number] anemia normocytic normochromic -continue pantoprazole as prescribed -monitor H&H q.6 hours - GI consultation-Spoke to Dr. Davies, shopping centre manager recommended to IV iron once then continue ferrous sulfate. Recommended to do a cardiology consult to get clearance for endoscopy and colonoscopy possibly tomorrow evening or Friday morning. Hold Plavix for now -blood transfusion if hemoglobin <8 for active bleeding, otherwise if hemoglobin less than 7 we will do blood transfusion -ordered typing and cross matching - stool occult blood test NEGATIVE -pending cardiology consult for clearance for endoscopy and colonoscopy and regarding holding Plavix further. # CAD, status post PCI to D1 # hyperlipidemia -continue Plavix 75 mg p.o. daily -continue atorvastatin -pending cardiology consult for clearance for possible endoscopy/colonoscopy # hypertension -monitor blood pressure # sinus bradycardia -monitor clinically Goals of care, Code status full code ; discussed with >15 minutes PUD prophylaxis: Pantoprazole DVT prophylaxis: SCD Plan discussed with Dr. Barnes , nursing staff, Total time spent on patient evaluation, chart review, assessment and plan, discussion discussion >35 minutes Plan discussed with: Patient, Other (RN) Plan discussed with: Patient, Other (RN) My Orders My Orders Orders - RICARDO SALGADO Procedure Category Date Status Time Admit ADMIT 05/24/25 Transmitted 18:06 Code Status CODE 05/24/25 Transmitted 18:06 Notify Md Of Changes BILLIE 05/24/25 In Process From Base 18:06 Reproduction Machine Loader For BILLIE 05/24/25 In Process 24 Hours 18:06 Sequential BILLIE 05/24/25 In Process Compression Device 18:08 Chest Xray 1 View XY 05/24/25 Resulted 18:09 2 Large Bore Ivs BILLIE 05/24/25 In Process (20mg Or Larg 18:11 * Gi Dvh Doctor Of Naturopathic Medicine CONS 05/24/25 Transmitted 18:11 * Cardiology Consult CONS 05/24/25 Transmitted 19:51 Atorvastatin (Lipitor) PHA 05/25/25 In Process 18:00 Clopidogrel Bisulfate PHA 05/25/25 In Process (Plavix) 10:00 Cyanocobalamin PHA 05/25/25 In Process (Vitamin B-12) 10:00 Pantoprazole PHA 05/25/25 In Process (Protonix) 10:00 Communication Order ORDERS 05/25/25 Transmitted 06:40 Clear Liq Diet DIET 05/25/25 Transmitted Lunch Date of Service: May 25, 2025 Billing Provider: RICARDO SALGADO Common Visit Codes: [id number] INP/OBS CARE (HIGH), [id number] INP/OBS CARE(HIGH) Secondary Visit Codes: [id number] CARE PLAN 30 MINUTES RICARDO SALGADO May 25, 2025 17:35 SEAN BARNES MD May 25, 2025 17:49
[2025-05-25] MEDS: ATORVASTATIN 20 MG TAB PO SCH (17:52)
--- NOTE | 2025-05-25 19:47 | DVHINCON2 ---
Date of service: May 25, [address] Feliciano Reason for Consultation GI bleeding anemia status post stent placement for coronary artery disease on Plavix History of Present Illness 69-year-old male came to my office for consultation for GI problems of black stools. Referred by Dr. Connor the primary care. He is going to history of coronary artery disease for which he had stent placement on February 14 of this year and he has been on Plavix since then last three four weeks she has been having dark stools he was seen by his primary MD Dr. Marrufo who did the blood test about three weeks ago or so which was about 12 g and the continues to have some black stools in the hemoglobin done with three four days ago was 7 g he also continues to have black stools. Denied any hematemesis patient has got some nausea some mild vague abdominal pains. It was also tired and weak. He denies any chest pain or significant shortness of breath with complaints of weakness and tiredness iron pills his hemoglobin is still low and because of the fact that patient has to be on Plavix and the hemoglobin has dropped significantly from 12-7 I had recommended that patient be admitted in the hospital for further evaluation by Cardiology and GI workup as necessary. 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 GI consult is for possible GI workup for sudden drop in hemoglobin in the black stools after cardiac clearance Past Medical History Coronary artery disease status post stent placement. By Dr. Khanna in January 2025 patient also history of hypertension and hyperlipidemia Past Surgical History Right inguinal hernia surgery Family History: Patient reports no known family medical history. Family History Noncontributory Social History Occasional beers denies smoking Allergies: Coded Allergies: NO KNOWN ALLERGIES (Unverified , 02/11/25) Home Meds Active Scripts Atorvastatin Calcium (ATORVASTATIN CALCIUM) 80 Mg Tab, 80 MG PO QPM for 30 Days, #30 TAB 3 Refills Prov:JAGUAR GARCIA MD 02/15/25 Clopidogrel Bisulfate (Plavix) 75 Mg Tab, 75 MG PO DAILY for 30 Days, #30 TAB 3 Refills Prov:JAGUAR GARCIA MD 02/15/25 Aspirin (Aspir-81) 81 Mg Tab, 81 MG PO DAILY for 30 Days, #30 TAB 3 Refills Prov:JAGUAR GARCIA MD 02/15/25 Reported Medications Cyanocobalamin (Vitamin B12) 1,000 Mcg Tab, 1 TAB PO DAILY for SUPPLEMENT 02/11/25 Losartan Potassium (Losartan Potassium) 50 Mg Tab, 1 TAB PO QAM for HYPERTENSION 02/11/25 Current Medications Current Medications Medications (Trade) Dose Ordered Sig/Rosalie Route PRN Reason Start Time Stop Time Status Last Admin Atorvastatin Calcium (Lipitor) 20 mg QPM PO 05/25/25 18:00 05/25/25 17:52 Clopidogrel Bisulfate (Plavix) 75 mg DAILY PO 05/25/25 10:00 Hold Cyanocobalamin (Vitamin B-12) 1,000 mcg DAILY PO 05/25/25 10:00 05/25/25 09:37 Pantoprazole Sodium (Protonix) 40 mg BID IV 05/25/25 10:00 05/25/25 09:36 Iron Sucrose 110 ml @ 110 mls/hr DAILY@1200 IV 05/26/25 12:00 05/26/25 12:59 UNV Review of Systems Noncontributory Vital Signs Vital Signs Date Time Temp Pulse Resp B/P (MAP) Pulse Ox O2 Delivery O2 Flow Rate FiO2 05/25/25 17:00 98.3 56 18 132/68 (89) 97 98.3 05/25/25 08:08 Room Air* 0 21 Physical Exam Moderately built and nourished male in no acute distress looked pleasant HEENT examination reveals mild pallor no icterus Lungs clear Cardiovascular unremarkable Abdomen is soft no tenderness no rigidity no guarding no masses bowel sounds normal Extremities no edema Neurological grossly intact Labs/Diagnostic Data Labs Test 05/25/25 13:30 05/25/25 06:13 05/25/25 05:00 05/24/25 19:46 Range/Units Hemoglobin 7.6 L 13.5-17.5 g/dL Hematocrit 22.8 L 41.0-53.0 % Sodium Level 144 136-145 mmol/L Potassium Level 4.1 3.5-5.1 mmol/L Chloride Level 111 H 98-107 mmol/L Carbon Dioxide Level 23 20-31 mmol/L Anion Gap 10 5-15 Blood Urea Nitrogen 14 9-23 mg/dL Creatinine 1.19 0.700-1.30 mg/dL Glomerular Filtration Rate Calc 65 >90 mL/min BUN/Creatinine Ratio 11.8 10.0-20.0 Serum Glucose 91 74-106 mg/dL Calcium Level 8.2 L 8.7-10.4 mg/dL Ferritin 16.9 L 22-322 ng/mL Total Bilirubin 0.5 0.2-1.0 mg/dL Aspartate Amino Transferase (AST) 13 13-40 U/L Alanine Aminotransferase (ALT) 14 7-40 U/L Alkaline Phosphatase 65 46-116 U/L Total Protein 5.7 5.7-8.2 g/dL Albumin 3.7 3.2-4.8 g/dL Urine Color Yellow Yellow Urine Clarity Clear Clear Urine pH 5.5 5.0-9.0 Urine Specific Robert Lee 1.020 1.001-1.035 Urine Protein Normal Negative Urine Ketones Negative Negative Urine Blood Normal Negative /uL Urine Nitrite Negative Negative Urine Bilirubin Negative Negative Urine Urobilinogen Normal Negative mg/dL Urine Leukocyte Esterase Negative Negative /uL Urine Glucose Normal Normal mg/dL Stool Occult Blood Negative Negative Stool Occult Blood Sample #3 Negative Test 05/24/25 18:19 05/24/25 15:14 Range/Units White Blood Count 5.8 4.4-10.8 10^3/uL Red Blood Count 2.79 L 4.5-5.90 10^6/uL Mean Corpuscular Volume 87.1 80.0-100.0 fL Mean Corpuscular Hemoglobin 29.3 28.0-32.0 pg Mean Corpuscular Hemoglobin Concent 33.7 32.0-36.0 g/dL Red Cell Distribution Width 16.1 H 11.8-14.3 % Platelet Count 329 140-450 10^3/uL Mean Platelet Volume 7.3 6.9-10.8 fL Neutrophils (%) (Auto) 64.7 37.0-80.0 % Lymphocytes (%) (Auto) 21.7 10.0-50.0 % Monocytes (%) (Auto) 8.7 0.0-12.0 % Eosinophils (%) (Auto) 4.3 0.0-7.0 % Basophils (%) (Auto) 0.6 0.0-2.0 % Neutrophils # (Auto) 3.8 1.6-8.6 10 ^3/uL Lymphocytes # (Auto) 1.3 0.4-5.4 10 ^3/uL Monocytes # (Auto) 0.5 0-1.3 10 ^3/uL Eosinophils # (Auto) 0.2 0-0.8 10 ^3/uL Basophils # (Auto) 0 0-0.2 10 ^3/uL Nucleated Red Blood Cells 0.1 % Hemoglobin A1c 5.1 <5.7 % A1C Prothrombin Time 11.2 9.3-11.8 sec Prothrombin Time INR 1.06 0.9-1.15 Activated Partial Thromboplast Time 27.4 24.5-34.5 SEC Iron Level 48 L 65-175 ug/dL Total Iron Binding Capacity 244 L 250-425 ug/dL Percent Iron Saturation 19.7 L 20-55 % Direct Bilirubin 0.2 <0.3 mg/dL Thyroid Stimulating Hormone (TSH) 3.68 0.55-4.78 uIU/mL Hepatitis A IgM Antibody Negative Hepatitis B Surface Antigen Negative Negative Hepatitis B Core IgM Antibody Negative Negative Hepatitis C Antibody Negative Negative Assessment 69-year-old male with a history of coronary artery disease status post stent placement in January [address] Khanna patient has history of hypertension hyperlipidemia patient has got complaints of GI bleeding with black stools and the hemoglobin has dropped to drop of 5 g mm from 12-7.6 in the last 10 days when he has been continuing to have black stools and was evaluated for by me if in the office as an outpatient but because of the sudden drop in the hemoglobin as well as the need for Plavix which he is on for coronary artery disease status post reason stent placement recommended to be admitted patient has continued to have some black stools but no hematemesis or other problems Examination is unremarkable Impression GI bleed possible etiology like gastritis ulcer disease or even colonic problems to be excluded Coronary artery disease on clopidogrel Plan/Recommendation will recommend to follow the hemoglobin closely We will hold off the Plavix for the time being until evaluated by Cardiology We will need EGD and colon evaluation as after clearance from Cardiology This evening I had the chance to talk to Dr. Hu osman the beef cattle farm worker who was on-call who recommended to go ahead with a colonoscopy and EGD and takeoff for the Plavix for the time being We will prepare the patient for EGD and colon and plans to get it done either tomorrow evening or Friday morning as possible Procedure risks benefits alternatives agreeable for the same with the patient and his Given the orders for the bowel prep and we will try to plan if patient is clear to get it done tomorrow evening or Friday morning Thank you Dr. Feliciano for asking me to take part in the care of this pleasant man Dr. Davies Plan discussed with: Patient JHOAN DAVIES MD May 25, 2025 19:47
[2025-05-25] MEDS: GOLYTELY 4L KIT PO ONE (22:11)
[2025-05-26] VITALS (8 sets, daily range): BP systolic 125–145; BP diastolic 66–98; PULSE 53–74; RESP 18–20; TEMP 97–98.4; O2SAT 94–98
[2025-05-26 06:54] LABS: Hemoglobin 7.9 g/dL (13.5-17.5)
[2025-05-26 06:56] LABS: Hematocrit 22.9 % (41.0-53.0); Mean Corpuscular Hemoglobin 29.7 pg (28.0-32.0); Mean Corpuscular Volume 86.7 fL (80.0-100.0); Nucleated Red Blood Cells % 0.1 %
[2025-05-26 07:09] LABS: INR 1.14 (0.9-1.15); Partial Thromboplastin Time 29.3 SEC (24.5-34.5); Prothrombin Time 11.9 sec (9.3-11.8)
[2025-05-26 07:22] LABS: Alanine Aminotransferase 13 U/L (7-40); Albumin 3.6 g/dL (3.2-4.8); Alkaline Phosphatase 66 U/L (46-116); Anion Gap 10 (5-15); BUN/Creatinine Ratio 8.7 (10.0-20.0); Blood Urea Nitrogen 9 mg/dL (9-23); Carbon Dioxide 22 mmol/L (20-31); Glucose 86 mg/dL (74-106); Magnesium 2.2 mg/dL (1.6-2.6); Potassium 4.1 mmol/L (3.5-5.1); Sodium 144 mmol/L (136-145)
[2025-05-26 07:23] LABS: Bilirubin, Total 0.7 mg/dL (0.2-1.0)
[2025-05-26 07:25] LABS: Calcium 8.0 mg/dL (8.7-10.4); Chloride 112 mmol/L (98-107); Total Protein 5.6 g/dL (5.7-8.2)
--- NOTE | 2025-05-26 08:14 | DVHINCON2 ---
Date Seen: May 26, 2025 Referring Physician MD Jodie Reason for Consultation CAD and cardiac risk stratification History of Present Illness This is a 69-year-old male patient who presents to the emergency room with chief complaint of black tarry stools for approximately three weeks. The patient states he went to see his primary care physician who ordered blood work and he was told that his hemoglobin levels were low. The patient was prompted to come to the emergency room for further evaluation. Cardiology has been consulted at this time given patient recent history of stent placement and newly diagnosed anemia. Initial twelve lead electrocardiogram found in [facility] reveals normal sinus rhythm without any significant ST segment changes. No troponin levels were drawn on this admission. The patient denies any cardiac symptoms just chest pain, palpitations, shortness of breath, or dizziness. Significant past medical history includes coronary artery disease s/p PTCA x 1 CATALINO (on Plavix), hypertension, dyslipidemia, alcohol use, and obesity. The patient follows up with tube test technician in the outpatient setting. Past Medical History Past medical history reviewed. No other significant than mentioned above. Past Surgical History Hernia repair Family History: Patient reports no known family medical history. Family History Family history reviewed. Social History The patient admits to drinking alcohol daily, approximately three beers per day for the last 50 years Denies illicit drug use Denies tobacco use Allergies: Coded Allergies: NO KNOWN ALLERGIES (Unverified , 02/11/25) Home Meds Active Scripts Atorvastatin Calcium (ATORVASTATIN CALCIUM) 80 Mg Tab, 80 MG PO QPM for 30 Days, #30 TAB 3 Refills Prov:JAGUAR GARCIA MD 02/15/25 Clopidogrel Bisulfate (Plavix) 75 Mg Tab, 75 MG PO DAILY for 30 Days, #30 TAB 3 Refills Prov:JAGUAR GARCIA MD 02/15/25 Aspirin (Aspir-81) 81 Mg Tab, 81 MG PO DAILY for 30 Days, #30 TAB 3 Refills Prov:JAGUAR GARCIA MD 02/15/25 Reported Medications Cyanocobalamin (Vitamin B12) 1,000 Mcg Tab, 1 TAB PO DAILY for SUPPLEMENT 02/11/25 Losartan Potassium (Losartan Potassium) 50 Mg Tab, 1 TAB PO QAM for HYPERTENSION 02/11/25 Home Meds Home medications reviewed. Current Medications Current Medications Medications (Trade) Dose Ordered Sig/Rosalie Route PRN Reason Start Time Stop Time Status Last Admin Atorvastatin Calcium (Lipitor) 20 mg QPM PO 05/25/25 18:00 05/25/25 17:52 Clopidogrel Bisulfate (Plavix) 75 mg DAILY PO 05/25/25 10:00 Hold Cyanocobalamin (Vitamin B-12) 1,000 mcg DAILY PO 05/25/25 10:00 05/25/25 09:37 Pantoprazole Sodium (Protonix) 40 mg BID IV 05/25/25 10:00 05/25/25 22:09 Iron Sucrose 110 ml @ 110 mls/hr DAILY@1200 IV 05/26/25 12:00 05/26/25 12:59 Review of Systems Constitutional: No symptom reported Ears, Nose, & Throat: No symptom reported Eyes: No symptom reported Neurological: No symptoms reported Pulmonary/Respiratory: No symptoms reported Cardiovascular: No symptom reported Gastrointestinal: No symptom reported Genitourinary: No symptom reported Musculoskeletal: No symptom reported Skin: No symptom reported Psychiatric: No symptom reported Endocrine: No symptom reported Hematologic/Lymphatic: No symptom reported Vital Signs Vital Signs Date Time Temp Pulse Resp B/P (MAP) Pulse Ox O2 Delivery O2 Flow Rate FiO2 05/26/25 05:00 98.0 59 19 130/66 (87) 96 98.0 05/25/25 20:00 Room Air* 0 21 Physical Exam General Appearance: Cooperative. Obese Pulmonary/Respiratory: Clear, bilateral breaths sounds. Cardiovascular/Chest: Regular rate and rhythm. Peripheral Pulses: 2+ Radial (R). 2+ Radial (L). 2+ Pedal (R). 2+ Pedal (L) Abdominal Exam: Normal bowel sounds. Ankle Exam: Negative ankle edema Lower extremities: Negative lower extremity edema Neuro/Mental Status: A/OX4, coherent. Thoughts/Psych: Normal thought pattern. Appropriate mood and affect. Good judgment and insight. Appearance: No acute distress. Skin Exam: Normal inspection. Normal color. Warm and dry. Labs/Diagnostic Data Labs Test 05/26/25 06:00 05/25/25 06:13 05/25/25 05:00 05/24/25 19:46 Range/Units White Blood Count 5.0 4.4-10.8 10^3/uL Red Blood Count 2.64 L 4.5-5.90 10^6/uL Hemoglobin 7.9 L 13.5-17.5 g/dL Hematocrit 22.9 L 41.0-53.0 % Mean Corpuscular Volume 86.7 80.0-100.0 fL Mean Corpuscular Hemoglobin 29.7 28.0-32.0 pg Mean Corpuscular Hemoglobin Concent 34.3 32.0-36.0 g/dL Red Cell Distribution Width 16.3 H 11.8-14.3 % Platelet Count 264 140-450 10^3/uL Mean Platelet Volume 7.4 6.9-10.8 fL Neutrophils (%) (Auto) 66.8 37.0-80.0 % Lymphocytes (%) (Auto) 19.6 10.0-50.0 % Monocytes (%) (Auto) 8.6 0.0-12.0 % Eosinophils (%) (Auto) 4.4 0.0-7.0 % Basophils (%) (Auto) 0.6 0.0-2.0 % Neutrophils # (Auto) 3.3 1.6-8.6 10 ^3/uL Lymphocytes # (Auto) 1.0 0.4-5.4 10 ^3/uL Monocytes # (Auto) 0.4 0-1.3 10 ^3/uL Eosinophils # (Auto) 0.2 0-0.8 10 ^3/uL Basophils # (Auto) 0 0-0.2 10 ^3/uL Nucleated Red Blood Cells 0.1 % Prothrombin Time 11.9 H 9.3-11.8 sec Prothrombin Time INR 1.14 0.9-1.15 Activated Partial Thromboplast Time 29.3 24.5-34.5 SEC Sodium Level 144 136-145 mmol/L Potassium Level 4.1 3.5-5.1 mmol/L Chloride Level 112 H 98-107 mmol/L Carbon Dioxide Level 22 20-31 mmol/L Anion Gap 10 5-15 Blood Urea Nitrogen 9 9-23 mg/dL Creatinine 1.03 0.700-1.30 mg/dL Glomerular Filtration Rate Calc 78 >90 mL/min BUN/Creatinine Ratio 8.7 L 10.0-20.0 Serum Glucose 86 74-106 mg/dL Calcium Level 8.0 L 8.7-10.4 mg/dL Magnesium Level 2.2 1.6-2.6 mg/dL Total Bilirubin 0.7 0.2-1.0 mg/dL Aspartate Amino Transferase (AST) 14 13-40 U/L Alanine Aminotransferase (ALT) 13 7-40 U/L Alkaline Phosphatase 66 46-116 U/L Total Protein 5.6 L 5.7-8.2 g/dL Albumin 3.6 3.2-4.8 g/dL Ferritin 16.9 L 22-322 ng/mL Urine Color Yellow Yellow Urine Clarity Clear Clear Urine pH 5.5 5.0-9.0 Urine Specific [place] 1.020 1.001-1.035 Urine Protein Normal Negative Urine Ketones Negative Negative Urine Blood Normal Negative /uL Urine Nitrite Negative Negative Urine Bilirubin Negative Negative Urine Urobilinogen Normal Negative mg/dL Urine Leukocyte Esterase Negative Negative /uL Urine Glucose Normal Normal mg/dL Stool Occult Blood Negative Negative Stool Occult Blood Sample #3 Negative Test 05/24/25 18:19 05/24/25 15:14 Range/Units Hemoglobin A1c 5.1 <5.7 % A1C Iron Level 48 L 65-175 ug/dL Total Iron Binding Capacity 244 L 250-425 ug/dL Percent Iron Saturation 19.7 L 20-55 % Direct Bilirubin 0.2 <0.3 mg/dL Thyroid Stimulating Hormone (TSH) 3.68 0.55-4.78 uIU/mL Hepatitis A IgM Antibody Negative Hepatitis B Surface Antigen Negative Negative Hepatitis B Core IgM Antibody Negative Negative Hepatitis C Antibody Negative Negative Assessment Preprocedural cardiovascular examination Coronary artery disease status post PTCA X 1 CATALINO (on Plavix) Acute anemia Hypertension Dyslipidemia Alcohol abuse Obesity Plan/Recommendation We will continue with the following plan/recommendations (Dr. Khanna): Case discussed with . Revised cardiac risk index (Brian criteria): 1 point (1.1% risk of major cardiac event). The patient has an underlying history of coronary artery disease, but does not present with any cardiac symptoms at this admission. Chest x-ray does not show any acute cardiopulmonary process. Prior to admission, the patient reports a good functional capacity. Per Cardiology standpoint, the patient is at an acceptable risk for moderate risk surgery. We will recommend to continue single antiplatelet therapy, preferably Plavix, when feasible and cleared by GI team. The patient was also educated on the need to stop drinking alcohol. In the setting of an unremarkable transthoracic echocardiogram, there is no further inpatient cardiac workup indicated at this time. Thank you for allowing us to care for this patient. Please call with any questions or concerns. Critical care time spent: 44 min utes This medical document was created using an electronic medical record system with voice recognition software and computerized dictation system. Although this document has been carefully reviewed, there might still be some phonetic and typ ographical errors. Occasional wrong-word or ``sound-alike substitutions may have occurred due to the inherent limitations of voice recognition software. These areas are purely typographical due to imperfections of the software programs and do not reflect any compromise in the patient's medical care. Please read the chart carefully and recognize, using context, where these subs titutions have occurred. Plan discussed with: Patient NYHA Physical activity limitations: NA Date of Service: May 26, 2025 Billing Provider: ADRIANA BAKER Cardiology Common Codes: [id number] INP/OBS CARE (High) Cardiology Consultation Codes: [id number] CONSULT <45MIN ADRIANA BAKER May 26, 2025 08:14
[2025-05-26] MEDS: IRON SUCROSE COMPLEX 110 ML IV SCH (11:42)
--- NOTE | 2025-05-26 12:31 | DVHPNRES ---
Progress Note Date Seen: May 26, 2025 Resident Creating Document: RICARDO SALGADO RESIDENT Medical Necessity Reason Pt with a Central, PICC or Fol: No Subjective Review of Systems Patient is 69-year-old male with past medical history of CAD, status post PCI to do 1 in January, by Dr. Khanna, hypertension, hyperlipidemia came with a complaint of GI bleeding. As per patient he has been having black stool for last 10 days and feeling tired and fatigued, patient also reported feeling exertional shortness of breaths. As per patient he had a scheduled for EGD on 05/26/[address] Davies. But patient reported he was sent by his PCP to go to ER due to abdominal lab workup. Patient reported he is taking his Plavix regularly. As per patient and his family when patient started taking Plavix history get nosebleeds and ecchymosis but lately it stopped. Patient denied any diarrhea, abdominal pain, dysuria, chest pain, dysarthria or change in vision. Initial lab workup revealed hemoglobin 8.3, RDW 16.6, serum creatinine 1.34. PMH-CAD, status post PCI to do 1 in January, by Dr. Khanna, hypertension, hyperlipidemia PSH- right-sided inguinal hernia surgery Allergy- NKDA Personal History/ Social History- denies smoking, drinks beer 3-4 a day, denies substance abuse, lives with at home ROS Cardiovascular- deny acute chest pain or shortness of breath or cough or palpitation Respiratory denies cough or short of breath or wheezing Musculoskeletal-denies acute joint swelling or tenderness or redness Neurological- denies acute dysarthria, dysphagia, change in vision Psychiatry- denies depression or SI or HI Skin- denies acute rash or purpura Patient was seen today at bedside, labs and chart reviewed. Hemoglobin stable with 7.9. Patient was seen by ambulatory analyst Dr. Khanna on last night, recommended for endoscopy and colonoscopy probably tonight or tomorrow morning. Patient's bowel preparation for colonoscopy.. Holding Plavix as per Cardiology recommendation noted by Dr. Davies. Objective vital signs Vital Sign Date Time Temp Pulse Resp B/P (MAP) Pulse Ox O2 Delivery O2 Flow Rate FiO2 05/26/25 09:00 98.1 59 18 125/70 (88) 96 98.1 05/26/25 08:00 Room Air* 0 21 Total Intake and Output 05/25/25 05/25/25 05/26/25 15:00 23:00 07:00 Intake Total 240 ml 960 ml 970 ml Balance 240 ml 960 ml 970 ml medications Current Medications Medications Dose Ordered Sig/Rosalie Route Start Time Stop Time Status Last Admin Dose Admin Atorvastatin Calcium 20 mg QPM PO 05/25/25 18:00 05/25/25 17:52 20 MG Clopidogrel Bisulfate 75 mg DAILY PO 05/25/25 10:00 Hold Cyanocobalamin 1,000 mcg DAILY PO 05/25/25 10:00 05/25/25 09:37 1,000 MCG Pantoprazole Sodium 40 mg BID IV 05/25/25 10:00 05/26/25 09:24 40 MG Iron Sucrose 110 ml @ 110 mls/hr DAILY@1200 IV 05/26/25 12:00 05/26/25 12:59 05/26/25 11:42 110 MLS/HR Examination General examination- pale conjunctiva HEENT- PEERLA, no acute nasal discharge Cardiovascular- S1-S2 audible, rate and rhythm regular, no murmur Respiratory- CTAB, no wheeze or rhonchi Gastrointestinal-nontender, bowel sound+. Nondistended Musculoskeletal-no acute joint swelling or tenderness or redness Lower extremity- no leg edema Neurological- cranial nerves intact, no acute dysarthria or dysphagia Psychiatry- denies depression or SI or HI Skin- no acute rash or purpura laboratory and microbiology Laboratory Tests 05/26/25 06:00 Test 05/26/25 06:00 Range/Units Serum Glucose 86 74-106 mg/dL Problem List/Assessment/Plan Problem List/Assessment/Plan Assessment and plan # acute GI bleeding # melena # [id number] anemia normocytic normochromic -continue pantoprazole as prescribed -monitor H&H q.6 hours - GI consultation-Spoke to Dr. Davies, ambulatory analyst recommended to IV iron once then continue ferrous sulfate. Recommended to do a cardiology consult to get clearance for endoscopy and colonoscopy possibly tomorrow evening or Friday morning. Hold Plavix for now -blood transfusion if hemoglobin <8 for active bleeding, otherwise if hemoglobin less than 7 we will do blood transfusion -ordered typing and cross matching - stool occult blood test NEGATIVE -hold Plavix for now -status post gastroenterology consult- possible colonoscopy and endoscopy tonight or tomorrow morning as per ambulatory analyst Dr. Galdamez # CAD, status post PCI to D1 # hyperlipidemia -continue Plavix 75 mg p.o. daily -continue atorvastatin -pending cardiology consult for clearance for possible endoscopy/colonoscopy # hypertension -monitor blood pressure # sinus bradycardia -monitor clinically Goals of care, Code status full code ; discussed with >15 minutes PUD prophylaxis: Pantoprazole DVT prophylaxis: SCD Plan discussed with Dr. Barnes , nursing staff, Total time spent on patient evaluation, chart review, assessment and plan, discussion discussion >35 minutes Plan discussed with: Patient, Other (RN) Plan discussed with: Patient, Spouse (RN), Other My Orders My Orders Orders - RICARDO SALGADO Procedure Category Date Status Time Clear Liq Diet DIET 05/25/25 Transmitted Lunch Iron Sucrose Complex PHA 05/26/25 In Process (Venofer) 12:00 Date of Service: May 26, 2025 Billing Provider: SEAN BARNES MD Common Visit Codes: [id number] INP/OBS CARE(HIGH) RICARDO SALGADO May 26, 2025 12:31 SEAN BARNES MD May 26, 2025 20:07
[2025-05-27] VITALS (15 sets, daily range): BP systolic 106–153; BP diastolic 17–80; PULSE 51–88; RESP 13–19; TEMP 36.7; O2SAT 95–98
[2025-05-27] MEDS ORDERED: HYDROmorphone HCL 2 MG/ML VL/or syr IV PRN (07:15)
[2025-05-27] MEDS ORDERED: METOCLOPRAMIDE HCL 5MG/ml INJ 2ml VIAL IV PRN (07:15)
[2025-05-27] MEDS ORDERED: ONDANSETRON HCL 4 MG/2 ML VIAL IV PRN (07:15)
[2025-05-27] MEDS ORDERED: hydrALAZINE HCL 20 MG/ML VL IV PRN (07:15)
[2025-05-27] MEDS ORDERED: PROPOFOL 10 MG/ML 20 ML IV ONE ×2 (07:16→07:26)
[2025-05-27] MEDS ORDERED: ONDANSETRON HCL 4 MG/2 ML VIAL ONE (07:17)
[2025-05-27] MEDS ORDERED: METOCLOPRAMIDE HCL 5MG/ml INJ 2ml VIAL ONE (07:17)
[2025-05-27] MEDS ORDERED: LIDOCAINE 2% (LOCAL ANESTH.) PF 5ml SDV ONE (07:17)
--- NOTE | 2025-05-27 08:01 | DVHOP2 ---
Operative Report DATE OF PROCEDURE: 05/27/25 INDICATIONS FOR THE PROCEDURE: GI bleeding melanotic stools PROCEDURE PERFORMED: 1. Esophagogastroduodenoscopy and biopsy with cold biopsy forceps POSTOPERATIVE DIAGNOSIS: Small hiatal hernia Mild Esophagitis LA classification B of the distal esophagus biopsies taken Antral gastritis with erosions without any active bleeding biopsies taken to ensure there was no H pylori or other pathology Small gastric nodule in the antrum posteriorly possible pancreatic rest no bleeding seen biopsies taken with cold biopsy forceps No ulcers seen No active bleeding seen INFORMED CONSENT: The risks and benefits and alternatives were explained to the patient and informed consent was obtained. PROCEDURE IN DETAIL: The patient was kept NPO after midnight. In the endoscopy room, was given MAC sedation by anesthesia to to get him sedated. Olympus gastroscope was passed through the oropharynx into the stomach and the duodenum, and the findings were as follows. Esophagus: There was a small hiatal hernia about 1 cm in the distal esophagus Edematous streaks suggestive of mild esophagitis LA classification C No Esophageal ulcer No Esophageal stricture No esophageal varices No active bleeding seen from the esophagus Stomach: Fundus: Normal Body and antrum Erythematous streaks with type erosions in the antrum suggestive of mild erosive gastritis biopsies taken to ensure there was no H pylori or other pathology no active bleeding seen Small 8 mm gastric nodule in the antrum posteriorly possible pancreatic rest biopsies taken with cold biopsy forceps no active bleeding seen Pylorus normal Duodenum Normal no ulcers no bleeding Endoscopic impression Small hiatal hernia Mild Esophagitis LA classification B of the distal esophagus biopsies taken Antral gastritis with erosions without any active bleeding biopsies taken to ensure there was no H pylori or other pathology Small gastric nodule in the antrum posteriorly possible pancreatic rest no bleeding seen biopsies taken with cold biopsy forceps No ulcers seen No active bleeding seen Suggestions Await the biopsy results With PPIs or Pepcid and Carafate Follow the hemoglobin closely Further bleeding may need further evaluation as necessary Fact there was no active bleeding or ulcers could start cautiously clopidogrel with monitoring of the hemoglobin after 24 hours Thank you for asking me to take part in the care of this pleasant patient With warm regards, JHOAN Zacarias MD May 27, 2025 08:01
--- NOTE | 2025-05-27 08:07 | DVHOP2 ---
Operative Report DATE OF PROCEDURE: 05/27/25 INDICATIONS FOR THE PROCEDURE: GI bleeding black stools anemia PROCEDURE PERFORMED: Colonoscopy POSTOPERATIVE DIAGNOSIS: Diverticulosis Internal hemorrhoids Slightly poor prep proceed the right colon cleaned out as much as possible no gross lesions seen but suboptimal examination INFORMED CONSENT: The risks and benefits and alternatives were explained to the patient and informed consent was obtained. PROCEDURE IN DETAIL: The patient was kept NPO after midnight. Procedure was done under MAC sedation Olympus colonoscope was passed through the rectum all the way up to cecum. Cecum, ascending colon, hepatic flexure, transverse colon, splenic flexure, descending colon, and sigmoid colon were all visualized and the findings were as follows: Findings: There were thick stool particles in the right colon which were cleaned out as much as possible and grossly no lesions seen No active bleeding seen There were few scattered diverticula in the descending and sigmoid colon without any gross bleeding In the rectum there were internal hemorrhoids seen without any gross bleeding Patient tolerated the procedure extremely well postop stable Evidence of any active lower GI bleeding seen at this time ENDOSCOPIC IMPRESSION: Diverticulosis Internal hemorrhoids Slightly poor prep proceed the right colon cleaned out as much as possible no gross lesions seen but suboptimal examination SUGGESTIONS: Symptomatic treatment for the diverticulosis and the hemorrhoids Follow hemoglobin closely If evidence of further bleeding may need further evaluation as necessary including capsule endoscopy etc. Thank you JHOAN Zacarias MD May 27, 2025 08:07
[2025-05-27 08:30] LABS: Mean Corpuscular Hemoglobin 28.6 pg (28.0-32.0); Nucleated Red Blood Cells % 0.1 %
[2025-05-27 08:32] LABS: Hematocrit 23.0 % (41.0-53.0); Hemoglobin 7.6 g/dL (13.5-17.5); Mean Corpuscular Volume 86.6 fL (80.0-100.0)
[2025-05-27 08:56] LABS: Alanine Aminotransferase 17 U/L (7-40); Albumin 3.6 g/dL (3.2-4.8); Alkaline Phosphatase 71 U/L (46-116); Anion Gap 9 (5-15); BUN/Creatinine Ratio 7.7 (10.0-20.0); Bilirubin, Total 0.6 mg/dL (0.2-1.0); Carbon Dioxide 23 mmol/L (20-31); Glucose 84 mg/dL (74-106); Potassium 3.8 mmol/L (3.5-5.1); Sodium 143 mmol/L (136-145)
[2025-05-27 09:05] LABS: Chloride 111 mmol/L (98-107)
[2025-05-27 09:06] LABS: Blood Urea Nitrogen 8 mg/dL (9-23); Calcium 8.1 mg/dL (8.7-10.4); Total Protein 5.7 g/dL (5.7-8.2)
[2025-05-27] MEDS: FERROUS SULFATE 325mg EC TAB PO SCH (09:55)
[2025-05-27] MEDS: SUCRALFATE 1 GM TAB PO SCH (09:56)
[2025-05-27] MEDS ORDERED: FER325T PO (11:32)
[2025-05-27] MEDS ORDERED: PANT40T PO (11:32)
[2025-05-27] MEDS ORDERED: SUCR1TAB31 PO (11:32)
--- NOTE | 2025-05-27 12:14 | DVHDSRES ---
Discharge Summary Date of Admission Resident Creating Document: RICARDO SALGADO RESIDENT May 24, 2025 at 18:06 Date of Discharge: May 27, 2025 Admitting Diagnosis Acute GI bleeding with moderate to severe anemia Labs/Diagnostic Data: Laboratory Results Test 05/27/25 07:56 05/26/25 06:00 05/25/25 06:13 05/25/25 05:00 White Blood Count 4.7 10^3/uL (4.4-10.8) Red Blood Count 2.66 10^6/uL (4.5-5.90) Hemoglobin 7.6 g/dL (13.5-17.5) Hematocrit 23.0 % (41.0-53.0) Mean Corpuscular Volume 86.6 fL (80.0-100.0) Mean Corpuscular Hemoglobin 28.6 pg (28.0-32.0) Mean Corpuscular Hemoglobin Concent 33.1 g/dL (32.0-36.0) Red Cell Distribution Width 16.3 % (11.8-14.3) Platelet Count 237 10^3/uL (140-450) Mean Platelet Volume 7.3 fL (6.9-10.8) Neutrophils (%) (Auto) 71.5 % (37.0-80.0) Lymphocytes (%) (Auto) 16.1 % (10.0-50.0) Monocytes (%) (Auto) 8.3 % (0.0-12.0) Eosinophils (%) (Auto) 3.6 % (0.0-7.0) Basophils (%) (Auto) 0.5 % (0.0-2.0) Neutrophils # (Auto) 3.4 10 ^3/uL (1.6-8.6) Lymphocytes # (Auto) 0.8 10 ^3/uL (0.4-5.4) Monocytes # (Auto) 0.4 10 ^3/uL (0-1.3) Eosinophils # (Auto) 0.2 10 ^3/uL (0-0.8) Basophils # (Auto) 0 10 ^3/uL (0-0.2) Nucleated Red Blood Cells 0.1 % Sodium Level 143 mmol/L (136-145) Potassium Level 3.8 mmol/L (3.5-5.1) Chloride Level 111 mmol/L (98-107) Carbon Dioxide Level 23 mmol/L (20-31) Anion Gap 9 (5-15) Blood Urea Nitrogen 8 mg/dL (9-23) Creatinine 1.04 mg/dL (0.700-1.30) Glomerular Filtration Rate Calc 77 mL/min (>90) BUN/Creatinine Ratio 7.7 (10.0-20.0) Serum Glucose 84 mg/dL (74-106) Calcium Level 8.1 mg/dL (8.7-10.4) Total Bilirubin 0.6 mg/dL (0.2-1.0) Aspartate Amino Transferase (AST) 14 U/L (13-40) Alanine Aminotransferase (ALT) 17 U/L (7-40) Alkaline Phosphatase 71 U/L (46-116) Total Protein 5.7 g/dL (5.7-8.2) Albumin 3.6 g/dL (3.2-4.8) Prothrombin Time 11.9 sec (9.3-11.8) Prothrombin Time INR 1.14 (0.9-1.15) Activated Partial Thromboplast Time 29.3 SEC (24.5-34.5) Magnesium Level 2.2 mg/dL (1.6-2.6) Ferritin 16.9 ng/mL (22-322) Urine Color Yellow (Yellow) Urine Clarity Clear (Clear) Urine pH 5.5 (5.0-9.0) Urine Specific [place] 1.020 (1.001-1.035) Urine Protein Normal (Negative) Urine Ketones Negative (Negative) Urine Blood Normal /uL (Negative) Urine Nitrite Negative (Negative) Urine Bilirubin Negative (Negative) Urine Urobilinogen Normal mg/dL (Negative) Urine Leukocyte Esterase Negative /uL (Negative) Urine Glucose Normal mg/dL (Normal) Test 05/24/25 19:46 05/24/25 18:19 05/24/25 15:14 Stool Occult Blood Negative (Negative) Stool Occult Blood Sample #3 (Negative) Hemoglobin A1c 5.1 % A1C (<5.7) Iron Level 48 ug/dL (65-175) Total Iron Binding Capacity 244 ug/dL (250-425) Percent Iron Saturation 19.7 % (20-55) Direct Bilirubin 0.2 mg/dL (<0.3) Thyroid Stimulating Hormone (TSH) 3.68 uIU/mL (0.55-4.78) Hepatitis A IgM Antibody Negative Hepatitis B Surface Antigen Negative (Negative) Hepatitis B Core IgM Antibody Negative (Negative) Hepatitis C Antibody Negative (Negative) Other Laboratory Tests 05/27/25 07:56 Brief Hx & Hospital Course: Patient is 69-year-old male with past medical history of CAD, status post PCI to do 1 in January, by Dr. Khanna, hypertension, hyperlipidemia came with a complaint of GI bleeding. As per patient he has been having black stool for last 10 days and feeling tired and fatigued, patient also reported feeling exertional shortness of breaths. As per patient he had a scheduled for EGD on 05/26/[address] Davies. But patient reported he was sent by his PCP to go to ER due to abdominal lab workup. Patient reported he is taking his Plavix regularly. As per patient and his family when patient started taking Plavix history get nosebleeds and ecchymosis but lately it stopped. Patient denied any diarrhea, abdominal pain, dysuria, chest pain, dysarthria or change in vision. Initial lab workup revealed hemoglobin 8.3, RDW 16.6, serum creatinine 1.34. Patient was treated conservatively with IV pantoprazole. Patient was seen by junior project coordinator. Patient underwent endoscopy and colonoscopy. Endoscopy revealed mild esophagitis gastritis, antral gastritis, small gastric nodules in the antrum posteriorly. Colonoscopy revealed internal hemorrhoids and diverticulosis. Patient is hemodynamically stable during the course. No blood transfusion needed. Patient is being discharged home today after 1 unit of blood transfusion and checking H&H with the advised to resume Plavix tomorrow morning on 05/28/2025.. Pantoprazole 40 mg p.o. b.i.d., Carafate 1 g q.6h for 14 days. Ferrous sulfate 325 mg p.o. daily. Patient was advised to follow up with the discharge clinic for biopsy report, follow up with the primary care physician in 1-2 weeks and also to follow up with the junior project coordinator in 1 week, follow up with the centrifugal station operator as per schedule. Patient's meds were sent to the pharmacy electronically. Patient was hemodynamically stable on discharge. Patient was counseled about effect of alcoholism on health. Patient was advised to avoid NSAIDs, dehydration and constipation. Patient's meds were sent to the pharmacy electronically. Consults/Reason for consult Patient: TARIQ YOUNG Acct: [id number] : 1955 Loc: [facility] Age/Sex: 69/M Room: 0223T / Bed: B Attending Phy: RICARDO SALGADO RESIDENT Operative Report DATE OF PROCEDURE: 05/27/25 INDICATIONS FOR THE PROCEDURE: GI bleeding melanotic stools PROCEDURE PERFORMED: 1. Esophagogastroduodenoscopy and biopsy with cold biopsy forceps POSTOPERATIVE DIAGNOSIS: Small hiatal hernia Mild Esophagitis LA classification B of the distal esophagus biopsies taken Antral gastritis with erosions without any active bleeding biopsies taken to ensure there was no H pylori or other pathology Small gastric nodule in the antrum posteriorly possible pancreatic rest no bleeding seen biopsies taken with cold biopsy forceps No ulcers seen No active bleeding seen INFORMED CONSENT: The risks and benefits and alternatives were explained to the patient and informed consent was obtained. PROCEDURE IN DETAIL: The patient was kept NPO after midnight. In the endoscopy room, was given MAC sedation by anesthesia to to get him sedated. Olympus gastroscope was passed through the oropharynx into the stomach and the duodenum, and the findings were as follows. Esophagus: There was a small hiatal hernia about 1 cm in the distal esophagus Edematous streaks suggestive of mild esophagitis LA classification C No Esophageal ulcer No Esophageal stricture No esophageal varices No active bleeding seen from the esophagus Stomach: Fundus: Normal Body and antrum Erythematous streaks with type erosions in the antrum suggestive of mild erosive gastritis biopsies taken to ensure there was no H pylori or other pathology no active bleeding seen Small 8 mm gastric nodule in the antrum posteriorly possible pancreatic rest biopsies taken with cold biopsy forceps no active bleeding seen Pylorus normal Duodenum Normal no ulcers no bleeding Endoscopic impression Small hiatal hernia Mild Esophagitis LA classification B of the distal esophagus biopsies taken Antral gastritis with erosions without any active bleeding biopsies taken to ensure there was no H pylori or other pathology Small gastric nodule in the antrum posteriorly possible pancreatic rest no bleeding seen biopsies taken with cold biopsy forceps No ulcers seen No active bleeding seen Suggestions Await the biopsy results With PPIs or Pepcid and Carafate Follow the hemoglobin closely Further bleeding may need further evaluation as necessary Fact there was no active bleeding or ulcers could start cautiously clopidogrel with monitoring of the hemoglobin after 24 hours Thank you for asking me to take part in the care of this pleasant patient With warm regards, JHOAN Zacarias MD May 27, 2025 08:01 DICTATED BY:JHOAN DAVIES MD DICTATED DATE/TIME:05/27/25 0801 ELECTRONICALLY SIGNED BY: ELECTRONICALLY CO-SIGNED BY: Patient: TARIQ YOUNG Acct: [id number] : 1955 Loc: [facility] Age/Sex: 69/M Room: [facility] / Bed: B Attending Phy: RICARDO SALGADO RESIDENT Operative Report DATE OF PROCEDURE: 05/27/25 INDICATIONS FOR THE PROCEDURE: GI bleeding black stools anemia PROCEDURE PERFORMED: Colonoscopy POSTOPERATIVE DIAGNOSIS: Diverticulosis Internal hemorrhoids Slightly poor prep proceed the right colon cleaned out as much as possible no gross lesions seen but suboptimal examination INFORMED CONSENT: The risks and benefits and alternatives were explained to the patient and informed consent was obtained. PROCEDURE IN DETAIL: The patient was kept NPO after midnight. Procedure was done under MAC sedation Olympus colonoscope was passed through the rectum all the way up to cecum. Cecum, ascending colon, hepatic flexure, transverse colon, splenic flexure, descending colon, and sigmoid colon were all visualized and the findings were as follows: Findings: There were thick stool particles in the right colon which were cleaned out as much as possible and grossly no lesions seen No active bleeding seen There were few scattered diverticula in the descending and sigmoid colon without any gross bleeding In the rectum there were internal hemorrhoids seen without any gross bleeding Patient tolerated the procedure extremely well postop stable Evidence of any active lower GI bleeding seen at this time ENDOSCOPIC IMPRESSION: Diverticulosis Internal hemorrhoids Slightly poor prep proceed the right colon cleaned out as much as possible no gross lesions seen but suboptimal examination SUGGESTIONS: Symptomatic treatment for the diverticulosis and the hemorrhoids Follow hemoglobin closely If evidence of further bleeding may need further evaluation as necessary including capsule endoscopy etc. Thank you JHOAN Zacarias MD May 27, 2025 08:07 DICTATED BY:JHOAN DAVIES MD DICTATED DATE/TIME:05/27/25 08 ELECTRONICALLY SIGNED BY:JHOAN DAVIES MD 05/27/25 08 ELECTRONICALLY CO-SIGNED BY: Operations or Procedures [place] [id number] Ph: [phone] DIAGNOSTIC IMAGING Diagnostic Imaging Report : [id number] Signed PATIENT: TARIQ YOUNG ACCT: [id number] UNIT: [id number] : 1955 LOC: OVERFLOW ROOM / BED: [address] [place] [address] AGE / SEX: 69 / M ADM STATUS: ADM IN SERVICE 08 ORDERING PHYSICIAN: RICARDO SALGADO PROCEDURE(s): CXR1 - CHEST XRAY 1 VIEW REASON: SOB ORDER NUMBER(s): [id number], ACCESSION NUMBER(s): [id number] CLINICAL HISTORY: SOB TECHNIQUE: Single view of the chest was obtained. COMPARISON: XY CHEST PORTABLE on DOS: 02/14/25 FINDINGS: The heart size and pulmonary vasculature are normal. The lungs are clear. IMPRESSION: NO ACUTE CARDIOPULMONARY PROCESS. ATED BY: EUGENE HERNANDEZ MD DICTATED DATE/TIME: 05/24/251842 SIGNED BY: EUGENE HERNANDEZ MD SIGNED DATE/TIME: 05/24/251842 CC: Patient Name: TARIQ YOUNG Acct: [id number] Room: [facility] /Bed: Attending Physician: RICARDO SALGADO Loc: TELE-CENTR Unit: [id number] CONSULTATION REPORT . ................................................................................ ............................................................................... Date Seen: May 26, 2025 Referring Physician MD Jodie Reason for Consultation CAD and cardiac risk stratification History of Present Illness This is a 69-year-old male patient who presents to the emergency room with chief complaint of black tarry stools for approximately three weeks. The patient states he went to see his primary care physician who ordered blood work and he was told that his hemoglobin levels were low. The patient was prompted to come to the emergency room for further evaluation. Cardiology has been consulted at this time given patient recent history of stent placement and newly diagnosed anemia. Initial twelve lead electrocardiogram found in Cardio Therapy Administrative Assistant reveals normal sinus rhythm without any significant ST segment changes. No troponin levels were drawn on this admission. The patient denies any cardiac symptoms just chest pain, palpitations, shortness of breath, or dizziness. Significant past medical history includes coronary artery disease s/p PTCA x 1 CATALINO (on Plavix), hypertension, dyslipidemia, alcohol use, and obesity. The patient follows up with centrifugal station operator in the outpatient setting. Past Medical History Past medical history reviewed. No other significant than mentioned above. Past Surgical History Hernia repair Family History: Patient reports no known family medical history. Family History Family history reviewed. Social History The patient admits to drinking alcohol daily, approximately three beers per day for the last 50 years Denies illicit drug use Denies tobacco use Allergies: Coded Allergies: NO KNOWN ALLERGIES (Unverified , 02/11/25) Home Meds Active Scripts Atorvastatin Calcium (ATORVASTATIN CALCIUM) 80 Mg Tab, 80 MG PO QPM for 30 Days, #30 TAB 3 Refills Prov:JAGUAR GARCIA MD 02/15/25 Clopidogrel Bisulfate (Plavix) 75 Mg Tab, 75 MG PO DAILY for 30 Days, #30 TAB 3 Refills Prov:JAGUAR GARCIA MD 02/15/25 Aspirin (Aspir-81) 81 Mg Tab, 81 MG PO DAILY for 30 Days, #30 TAB 3 Refills Prov:JAGUAR GARCIA MD 02/15/25 Reported Medications Cyanocobalamin (Vitamin B12) 1,000 Mcg Tab, 1 TAB PO DAILY for SUPPLEMENT 02/11/25 Losartan Potassium (Losartan Potassium) 50 Mg Tab, 1 TAB PO QAM for HYPERTENSION 02/11/25 Home Meds Home medications reviewed. Current Medications Current Medications Medications (Trade) Dose Ordered Sig/Rosalie Route PRN Reason Start Time Stop Time Status Last Admin Atorvastatin Calcium (Lipitor) 20 mg QPM PO 05/25/25 18:00 05/25/25 17:52 Clopidogrel Bisulfate (Plavix) 75 mg DAILY PO 05/25/25 10:00 Hold Cyanocobalamin (Vitamin B-12) 1,000 mcg DAILY PO 05/25/25 10:00 05/25/25 09:37 Pantoprazole Sodium (Protonix) 40 mg BID IV 05/25/25 10:00 05/25/25 22:09 Iron Sucrose 110 ml @ 110 mls/hr DAILY@1200 IV 05/26/25 12:00 05/26/25 12:59 Review of Systems Constitutional: No symptom reported Ears, Nose, & Throat: No symptom reported Eyes: No symptom reported Neurological: No symptoms reported Pulmonary/Respiratory: No symptoms reported Cardiovascular: No symptom reported Gastrointestinal: No symptom reported Genitourinary: No symptom reported Musculoskeletal: No symptom reported Skin: No symptom reported Psychiatric: No symptom reported Endocrine: No symptom reported Hematologic/Lymphatic: No symptom reported Vital Signs Vital Signs Date Time Temp Pulse Resp B/P (MAP) Pulse Ox O2 Delivery O2 Flow Rate FiO2 05/26/25 05:00 98.0 59 19 130/66 (87) 96 98.0 05/25/25 20:00 Room Air* 0 21 Physical Exam General Appearance: Cooperative. Obese Pulmonary/Respiratory: Clear, bilateral breaths sounds. Cardiovascular/Chest: Regular rate and rhythm. Peripheral Pulses: 2+ Radial (R). 2+ Radial (L). 2+ Pedal (R). 2+ Pedal (L) Abdominal Exam: Normal bowel sounds. Ankle Exam: Negative ankle edema Lower extremities: Negative lower extremity edema Neuro/Mental Status: A/OX4, coherent. Thoughts/Psych: Normal thought pattern. Appropriate mood and affect. Good judgment and insight. Appearance: No acute distress. Skin Exam: Normal inspection. Normal color. Warm and dry. Labs/Diagnostic Data Labs Test 05/26/25 06:00 05/25/25 06:13 05/25/25 05:00 05/24/25 19:46 Range/Units White Blood Count 5.0 4.4-10.8 10^3/uL Red Blood Count 2.64 L 4.5-5.90 10^6/uL Hemoglobin 7.9 L 13.5-17.5 g/dL Hematocrit 22.9 L 41.0-53.0 % Mean Corpuscular Volume 86.7 80.0-100.0 fL Mean Corpuscular Hemoglobin 29.7 28.0-32.0 pg Mean Corpuscular Hemoglobin Concent 34.3 32.0-36.0 g/dL Red Cell Distribution Width 16.3 H 11.8-14.3 % Platelet Count 264 140-450 10^3/uL Mean Platelet Volume 7.4 6.9-10.8 fL Neutrophils (%) (Auto) 66.8 37.0-80.0 % Lymphocytes (%) (Auto) 19.6 10.0-50.0 % Monocytes (%) (Auto) 8.6 0.0-12.0 % Eosinophils (%) (Auto) 4.4 0.0-7.0 % Basophils (%) (Auto) 0.6 0.0-2.0 % Neutrophils # (Auto) 3.3 1.6-8.6 10 ^3/uL Lymphocytes # (Auto) 1.0 0.4-5.4 10 ^3/uL Monocytes # (Auto) 0.4 0-1.3 10 ^3/uL Eosinophils # (Auto) 0.2 0-0.8 10 ^3/uL Basophils # (Auto) 0 0-0.2 10 ^3/uL Nucleated Red Blood Cells 0.1 % Prothrombin Time 11.9 H 9.3-11.8 sec Prothrombin Time INR 1.14 0.9-1.15 Activated Partial Thromboplast Time 29.3 24.5-34.5 SEC Sodium Level 144 136-145 mmol/L Potassium Level 4.1 3.5-5.1 mmol/L Chloride Level 112 H 98-107 mmol/L Carbon Dioxide Level 22 20-31 mmol/L Anion Gap 10 5-15 Blood Urea Nitrogen 9 9-23 mg/dL Creatinine 1.03 0.700-1.30 mg/dL Glomerular Filtration Rate Calc 78 >90 mL/min BUN/Creatinine Ratio 8.7 L 10.0-20.0 Serum Glucose 86 74-106 mg/dL Calcium Level 8.0 L 8.7-10.4 mg/dL Magnesium Level 2.2 1.6-2.6 mg/dL Total Bilirubin 0.7 0.2-1.0 mg/dL Aspartate Amino Transferase (AST) 14 13-40 U/L Alanine Aminotransferase (ALT) 13 7-40 U/L Alkaline Phosphatase 66 46-116 U/L Total Protein 5.6 L 5.7-8.2 g/dL Albumin 3.6 3.2-4.8 g/dL Ferritin 16.9 L 22-322 ng/mL Urine Color Yellow Yellow Urine Clarity Clear Clear Urine pH 5.5 5.0-9.0 Urine Specific [place] 1.020 1.001-1.035 Urine Protein Normal Negative Urine Ketones Negative Negative Urine Blood Normal Negative /uL Urine Nitrite Negative Negative Urine Bilirubin Negative Negative Urine Urobilinogen Normal Negative mg/dL Urine Leukocyte Esterase Negative Negative /uL Urine Glucose Normal Normal mg/dL Stool Occult Blood Negative Negative Stool Occult Blood Sample #3 Negative Test 05/24/25 18:19 05/24/25 15:14 Range/Units Hemoglobin A1c 5.1 <5.7 % A1C Iron Level 48 L 65-175 ug/dL Total Iron Binding Capacity 244 L 250-425 ug/dL Percent Iron Saturation 19.7 L 20-55 % Direct Bilirubin 0.2 <0.3 mg/dL Thyroid Stimulating Hormone (TSH) 3.68 0.55-4.78 uIU/mL Hepatitis A IgM Antibody Negative Hepatitis B Surface Antigen Negative Negative Hepatitis B Core IgM Antibody Negative Negative Hepatitis C Antibody Negative Negative Assessment Preprocedural cardiovascular examination Coronary artery disease status post PTCA X 1 CATALINO (on Plavix) Acute anemia Hypertension Dyslipidemia Alcohol abuse Obesity Plan/Recommendation We will continue with the following plan/recommendations (Dr. Khanna): Case discussed with . Revised cardiac risk index (Brian criteria): 1 point (1.1% risk of major cardiac event). The patient has an underlying history of coronary artery disease, but does not present with any cardiac symptoms at this admission. Chest x-ray does not show any acute cardiopulmonary process. Prior to admission, the patient reports a good functional capacity. Per Cardiology standpoint, the patient is at an acceptable risk for moderate risk surgery. We will recommend to continue single antiplatelet therapy, preferably Plavix, when feasible and cleared by GI team. The patient was also educated on the need to stop drinking alcohol. In the setting of an unremarkable transthoracic echocardiogram, there is no further inpatient cardiac workup indicated at this time. Thank you for allowing us to care for this patient. Please call with any questions or concerns. Critical care time spent: 44 minutes This medical document was created using an electronic medical record system with voice recognition software and computerized dictation system. Although this document has been carefully reviewed, there might still be some phonetic and typographical errors. Occasional wrong-word or ``sound-alike substitutions may have occurred due to the inherent limitations of voice recognition software. These areas are purely typographical due to imperfections of the software programs and do not reflect any compromise in the patient's medical care. Please read the chart carefully and recognize, using context, where these substitutions have occurred. Plan discussed with: Patient NYHA 2 Physical activity limitations: NA Date of Service: May 26, 2025 Billing Provider: ADRIANA BAKER Cardiology Common Codes: 45492-[id number] INP/OBS CARE (High) Cardiology Consultation Codes: 03156-[id number] CONSULT <45MIN ADRIANA BAKER May 26, 2025 08:14 DICTATED BY:ADRIANA BAKER DICTATED DATE/TIME:05/26/25 0814 ELECTRONICALLY SIGNED BY:ADRIANA BAKER 05/26/25914 ELECTRONICALLY CO-SIGNED BY: Condition at Discharge: Stable Final Diagnosis/Problems List # acute GI bleeding likely from diverticular disease/gastritis # could not rule out bleeding from small bowel # melena # [id number] anemia normocytic normochromic # esophagitis # gastritis # internal hemorrhoids #Small gastric nodule in the antrum posteriorly # diverticulosis # CAD, status post PCI to D1 # hyperlipidemia # hypertension # asymptomatic sinus bradycardia Discharge Disposition: Home Discharge Instruct/Medications Diet: Cardiac 2g Na,low cholest Activity: No Restrictions, As Tolerated Follow Up/Referral: Please follow up with the discharge clinic with the biopsy report Please follow up with the primary care physician in 1-2 weeks, monitor hemoglobin and hematocrit Please follow up with the junior project coordinator in 1 week Please follow up with the centrifugal station operator as per schedule Please avoid NSAIDs and alcohol Please avoid constipation and dehydration Medications: Pantoprazole 40 mg p.o. b.i.d. Carafate 1 g p.o. q.6h Please resume Plavix after 24 hours from now Ferrous sulfate 325 mg p.o. daily Scheduled Aspirin (Aspir-81), 81 MG PO DAILY Atorvastatin Calcium (Atorvastatin Calcium), 80 MG PO QPM Clopidogrel Bisulfate (Plavix), 75 MG PO DAILY Cyanocobalamin (Vitamin B12), 1 TAB PO DAILY, (Reported) Ferrous Sulfate (Ferrous Sulfate), 325 MG PO DAILY Losartan Potassium (Losartan Potassium), 1 TAB PO QAM, (Reported) Pantoprazole Sodium Sesquihydr (Pantoprazole Sodium), 40 MG PO BID Sucralfate (Carafate), 1 GM PO Q6HR Discharge Statement: "Patient was advised to return to the ER or call 911 if any headaches, dizziness, shortness of breath, chest pain, abdominal pain, bleeding, fevers, or worsening of medical condition. Patient was counseled about treatment plan, medications, possible side effects, patientverbalized understanding. All questions were answered to the best of my ability. This discharge took greater then 30 minutes in planning, reviewing documentation, counseling the patient, and discussing with other team members." ASSESSMENT ASSESSMENT Assessment Date of Service: May 27, 2025 Billing Provider: SEAN DAVIS MD Common Visit Codes: 17559-KZN/OBS DISCH DAY >30min RICARDO SALGADO RESIDENT May 27, 2025 12:14 SEAN DAVIS MD May 27, 2025 19:21
[2025-05-27 21:16] LABS: Hematocrit 26.9 % (41.0-53.0); Hemoglobin 8.9 g/dL (13.5-17.5)
[2025-05-28] MEDS ORDERED: PANTOPRAZOLE 40 MG TAB PO SCH (06:00)
== END 2025-05-27 23:11 | disposition home or self-care (01) | DRG 377 ==
LOC: ER 14:20 → OVERFLOW 18:06 → TELE-CENTR 21:21
PROVIDERS: ADMIT Student in an Organized Health Care Education/Training Program; ATTEND Student in an Organized Health Care Education/Training Program
PROC: 0DJD8ZZ Inspection of Lower Intestinal Tract, Via Natural or Artificial Opening Endoscopic (ICD-10-PCS; 2025-05-27)
PROC: 30233N1 Transfusion of Nonautologous Red Blood Cells into Peripheral Vein, Percutaneous Approach (ICD-10-PCS; 2025-05-27)
PROC: 0DB38ZX Excision of Lower Esophagus, Via Natural or Artificial Opening Endoscopic, Diagnostic (ICD-10-PCS; principal; 2025-05-27 07:10)
PROC: 0DB68ZX Excision of Stomach, Via Natural or Artificial Opening Endoscopic, Diagnostic (ICD-10-PCS; 2025-05-27 07:10)
DX: K57.31 Diverticulosis of large intestine without perforation or abscess with bleeding (principal); K20.91 Esophagitis, unspecified with bleeding; K29.71 Gastritis, unspecified, with bleeding; D64.9 Anemia, unspecified; I25.10 Atherosclerotic heart disease of native coronary artery without angina pectoris; I10 Essential (primary) hypertension; E78.5 Hyperlipidemia, unspecified; N19 Unspecified kidney failure; E66.9 Obesity, unspecified; F10.10 Alcohol abuse, uncomplicated; K44.9 Diaphragmatic hernia without obstruction or gangrene; K64.8 Other hemorrhoids; Z79.82 Long term (current) use of aspirin; Z79.899 Other long term (current) drug therapy; Z95.5 Presence of coronary angioplasty implant and graft; Z79.02 Long term (current) use of antithrombotics/antiplatelets; Z68.30 Body mass index [BMI] 30.0-30.9, adult; Y90.9 Presence of alcohol in blood, level not specified
CPT/HCPCS: 36415; 36430; 43239; 45378; 71045; 80048; 80053; 80074; 80076; 81003; 82270; 82728; 83036; 83540; 83550; 83735; 84443; 85014; 85018; 85025; 85610; 85730; 86850; 86900; 86901; 86920; 93005; 93306; 99291; G0378; J1756; J2003; J2405; J2470; J2704

== ENCOUNTER 2025-05-29 19:42 | Emergency (ER) | payer MEDICARE ==
[~2025-05-29] VITALS: Ht 175.3 cm; Wt 94.5 kg
[~2025-05-29 19:42] MED LIST changes: -AMLO1TAB23 PO; -ASPI1TAB19 PO; -ATOR20TA50 PO; +FER325T PO; +PANT40T PO; +SUCR1TAB31 PO
--- NOTE | 2025-05-29 20:38 | DVH ---
Upper Extremity RIGHT UPPER EXTREMITY Venous Duplex STUDY Clinical History: right AC edema/redness IV SITE Comparison: None Technique: Duplex Doppler evaluation of the venous system of the RIGHT lower neck and upper extremity including color Doppler and spectral/pulsed waveform analysis was performed. Findings: The internal jugular vein demonstrates appropriate compressibility and waveform variability. The subclavian vein is patent on color Doppler evaluation without intraluminal thrombus and demonstra dwight waveform variability. The visualized portion of the brachiocephalic vein is patent on color Doppler evaluation without intr aluminal thrombus and demonstrates waveform variability. The axillary vein demonstrates appropriate compressibility and waveform variability. The brachial veins demonstrate appropriate compressibility and patency on Doppler evaluation. The basilic vein demonstrates appropriate compressibility and patency on Doppler evaluation. The cephalic vein demonstrates NO COMPRESSIBILITY OR BLOOD FLOW. Impression: 1. THROMBUS NOTED IN THE RIGHT CEPHALIC VEIN. 2. NO RIGHT UPPER EXTREMITY DEEP VENOUS THROMBOSIS 3. If clinical concern/symptoms persist or worsen, short-interval follow-up study is suggested.
--- NOTE | 2025-05-29 20:53 | ED.PDOC ---
Musculoskeletal HPI Comments This is a 69 year-old male who presents to the ED with a chief complaint of R arm pain, redness, and swelling S/P IV removal from [facility]. Patient was discharged on 05/24/25. Patient has had a stent put in on February 14 of this year. He is on Plavix. Patient has no further complaints at this time and otherwise denies trauma to the area or N/V/D, fever, chills, weakness, or headache. Chief Complaint: Upper Extremity Time Seen by MD: 20:50 Reviewed Notes: Medications, Allergies Allergies: Coded Allergies: NO KNOWN ALLERGIES (Unverified , 02/11/25) Home Meds Active Scripts Ferrous Sulfate (Ferrous Sulfate) 325 Mg Tab, 325 MG PO DAILY for 30 Days, #30 TAB Prov:RICARDO SALGADO 05/27/25 Sucralfate (CARAFATE) 1 Gm Tab, 1 GM PO Q6HR for 14 Days, #56 TAB Prov:RICARDO SALGADO 05/27/25 Pantoprazole Sodium Sesquihydr (Pantoprazole Sodium) 40 Mg Tab, 40 MG PO BID for 30 Days, #60 TAB Prov:RICARDO SALGADO 05/27/25 Atorvastatin Calcium (ATORVASTATIN CALCIUM) 80 Mg Tab, 80 MG PO QPM for 30 Days, #30 TAB 3 Refills Prov:JAGUAR GARCIA MD 02/15/25 Clopidogrel Bisulfate (Plavix) 75 Mg Tab, 75 MG PO DAILY for 30 Days, #30 TAB 3 Refills Prov:JAGUAR GARCIA MD 02/15/25 Aspirin (Aspir-81) 81 Mg Tab, 81 MG PO DAILY for 30 Days, #30 TAB 3 Refills Prov:JAGUAR GARCIA MD 02/15/25 Reported Medications Cyanocobalamin (Vitamin B12) 1,000 Mcg Tab, 1 TAB PO DAILY for SUPPLEMENT 02/11/25 Losartan Potassium (Losartan Potassium) 50 Mg Tab, 1 TAB PO QAM for HYPERTENSION 02/11/25 Information Source: Patient Mode of Arrival: Ambulatory Location: Right Extremity Location: Arm Timing: Days Prehospital treatment: None Severity: Moderate Pain: Moderate Symptoms: Swelling, Pain, Erythema Associated signs and symptoms: Arm pain Past Medical History PAST MEDICAL HISTORY: CAD, High Lipids, HTN Surgical History (Other): Stent in place Family History Family History: Unknown Social History Smoker: Non-Smoker Alcohol: Occasionally Drugs: Denies Drug Use Lives In: Home Constitutional: denies: chills, diaphoresis, fatigue, fever, malaise, sweats, weakness, others EENTM: denies: blurred vision, double vision, ear bleeding, ear discharge, ear drainage, ear pain, ear ringing, eye pain, eye redness, hearing loss, mouth pain, mouth swelling, nasal discharge, nose bleeding, nose congestion, nose pain, photophobia, tearing, throat pain, throat swelling, voice changes, others Respiratory: denies: cough, hemoptysis, orthopnea, SOB at rest, shortness of breath, SOB with excertion, stridor, wheezing, others Cardiovascular: denies: chest pain, dizzy spells, diaphoresis, Dyspnea on exertion, edema, irregular heart beat, left arm pain, lightheadedness, palpitations, PND, syncope, others Gastrointestinal: denies: abdomen distended, abdominal pain, blood streaked bowels, constipated, diarrhea, dysphagia, difficulty swallowing, hematemesis, melena, nausea, poor appetite, poor fluid intake, rectal bleeding, rectal pain, vomiting, others Genitourinary: denies: burning, dysuria, flank pain, frequency, hematuria, incontinence, penile discharge, penile sore, pain, testicle pain, testicle swel ling, urgency, others Neurological: denies: dizziness, fainting, headache, left sided numbness, left sided weakness, numbness, paresthesia, pre-existing deficit, right sided numbness, right sided weakness, seizure, speech problems, tingling, tremors, weakness, others Musculoskeletal: reports: joint pain, joint swelling; denies: back pain, gout, muscle pain, muscle stiffness, neck pain, others Integumetry: denies: bruises, change in color, change in hair/nails, dryness, laceration, lesions, lumps, rash, wounds, others Allergic/Immunocompromised: denies: Difficulty Healing, Frequent Infections, Hives, Itching, others Hematologic/Lymphatic: denies: anemia, blood clots, easy bleeding, easy bruising, swollen glands, others Endocrine: denies: excessive hunger, excessive sweating, excessive thirst, excessive urination, flushing, intolerance to cold, intolerance to heat, unexplained weight gain, unexplained weight loss, others Psychiatric: denies: anxiety, bipolar disorder, depression, hopeless, panic disorder, schizophrenia, sleepless, suicidal, others All Other Systems: Reviewed and Negative Physical Exam General Appearance: No Apparent Distress, Normal HEENT: Pharynx Normal Neck: Full Range of Motion, Non-Tender Respiratory: Lungs Clear, No Respiratory Distress, Normal Breath Sounds Cardiovascular: No Edema, No JVD, No Murmur, No Gallop, Normal Peripheral Pulses, Regular Rate/Rhythm Breast Exam: Deferred Gastrointestinal: No Organomegaly, Non Tender, No Pulsatile Mass, Normal Bowel Sounds, Soft Genitalia: Deferred Pelvic: Deferred Rectal: Deferred Extremities: No calf tenderness, Normal capillary refill, Normal range of motion, No pedal edema Musculoskeletal : Apperance: Normal Neurologic: Alert, No Motor Deficits, Normal Affect, Normal Mood, No Sensory Deficits Cerebellar Function: Normal Reflexes: NOT DONE Skin: Dry, Normal Color, Rash (Right arm AC aspect with moderate edema, hardness, and erythema. No noted drainage or streaking. Strength sensory motion intact. Bounding right radial pulse. Strength, Sensory motion intact), Warm Lymphatic: No Adenopathy Was a procedure done? Was a procedure done?: No Differential Diagnosis EXT Differential Diagnosis: Deep Vein Thrombosis, Fracture, Sprain X-Ray, Labs, Meds, VS Vital Signs Date Time Temp Pulse Resp B/P (MAP) Pulse Ox O2 Delivery O2 Flow Rate FiO2 05/29/25 21:29 98.6 65 18 154/64 (94) 96 98.6 05/29/25 21:29 65 18 96 Room Air 05/29/25 20:06 100.2 79 20 166/74 94 100.2 Lab Test 05/29/25 20:32 Range/Units White Blood Count 6.7 # 4.4-10.8 10^3/uL Red Blood Count 3.36 L 4.5-5.90 10^6/uL Hemoglobin 9.7 L 13.5-17.5 g/dL Hematocrit 28.8 L 41.0-53.0 % Mean Corpuscular Volume 85.8 80.0-100.0 fL Mean Corpuscular Hemoglobin 28.9 28.0-32.0 pg Mean Corpuscular Hemoglobin Concent 33.6 32.0-36.0 g/dL Red Cell Distribution Width 16.0 H 11.8-14.3 % Platelet Count 263 140-450 10^3/uL Mean Platelet Volume 7.5 6.9-10.8 fL Neutrophils (%) (Auto) 80.4 H 37.0-80.0 % Lymphocytes (%) (Auto) 8.9 L 10.0-50.0 % Monocytes (%) (Auto) 7.2 0.0-12.0 % Eosinophils (%) (Auto) 2.9 0.0-7.0 % Basophils (%) (Auto) 0.6 0.0-2.0 % Neutrophils # (Auto) 5.4 1.6-8.6 10 ^3/uL Lymphocytes # (Auto) 0.6 0.4-5.4 10 ^3/uL Monocytes # (Auto) 0.5 0-1.3 10 ^3/uL Eosinophils # (Auto) 0.2 0-0.8 10 ^3/uL Basophils # (Auto) 0 0-0.2 10 ^3/uL Nucleated Red Blood Cells 0.1 % D-Dimer, Quantitative 0.77 H 0.0-0.49 mg/L FEU Sodium Level 142 136-145 mmol/L Potassium Level 4.4 3.5-5.1 mmol/L Chloride Level 106 98-107 mmol/L Carbon Dioxide Level 26 20-31 mmol/L Anion Gap 10 5-15 Blood Urea Nitrogen 13 9-23 mg/dL Creatinine 1.20 0.700-1.30 mg/dL Glomerular Filtration Rate Calc 65 >90 mL/min BUN/Creatinine Ratio 10.8 10.0-20.0 Serum Glucose 121 H 74-106 mg/dL Calcium Level 8.9 8.7-10.4 mg/dL Total Bilirubin 0.5 0.2-1.0 mg/dL Aspartate Amino Transferase (AST) 15 13-40 U/L Alanine Aminotransferase (ALT) 18 7-40 U/L Alkaline Phosphatase 99 46-116 U/L Total Protein 6.8 5.7-8.2 g/dL Albumin 4.3 3.2-4.8 g/dL [facility] [id number] [place] [id number] Ph: [phone] DIAGNOSTIC IMAGING Diagnostic Imaging Report : [id number] Signed PATIENT: HECTORTARIQ Patterson ACCT: [id number] UNIT: [id number] : 1955 LOC: ER ROOM / BED: / AGE / SEX: 69 / M ADM STATUS: REG ER SERVICE 12 ORDERING PHYSICIAN: CHON MOLINA PROCEDURE(s): RUDVT - Rt Upper DVT REASON: right AC edema/redness IV SITE ORDER NUMBER(s): [id number], ACCESSION NUMBER(s): [id number] Upper Extremity RIGHT UPPER EXTREMITY Venous Duplex STUDY Clinical History: right AC edema/redness IV SITE Comparison: None Technique: Duplex Doppler evaluation of the venous system of the RIGHT lower neck and upper extremity including color Doppler and spectral/pulsed waveform analysis wa s performed. Findings: The internal jugular vein demonstrates appropriate compressibility and waveform variability. The subclavian vein is patent on color Doppler evaluation without intraluminal thrombus and demonstrates waveform variability. The visualized portion of the brachiocephalic vein is patent on color Doppler evaluation without intraluminal thrombus and demonstrates waveform variability. The axillary vein demonstrates appropriate compressibility and waveform variability. The brachial veins demonstrate appropriate compressibility and patency on Doppler evaluation. The basilic vein demonstrates appropriate compressibility and patency on Doppler evaluation. The cephalic vein demonstrates NO COMPRESSIBILITY OR BLOOD FLOW. Impression: 1. THROMBUS NOTED IN THE RIGHT CEPHALIC VEIN. 2. NO RIGHT UPPER EXTREMITY DEEP VENOUS THROMBOSIS 3. If clinical concern/symptoms persist or worsen, short-interval follow-up study is suggested. X-Ray, Labs, Meds, VS Comment Impression: 1. THROMBUS NOTED IN THE RIGHT CEPHALIC VEIN. 2. NO RIGHT UPPER EXTREMITY DEEP VENOUS THROMBOSIs CBC, CMP within normal limits. Slight rising D-dimer 0.70. Ultrasound negative for deep vein thrombosis does show thrombosis in the right cephalic vein. Is currently on Plavix. Patient does have a follow up with his PCP on Friday due to hospital discharge. Consider repeat ultrasound and repeat dimer on follow up. Advised to elevate extremity and apply warm compresses several times a day. Was advised on ER return precautions chest pain shortness of breath slurred speech headache difficulty breathing any concerning symptoms call 911 or return to the ER. Requesting discharge at this time. Indicates understanding and agrees with discharge plan of care Images Reviewed?: Images reviewed and evaluated by me Time of 1ST Reevaluation: 21:57 Reevaluation 1ST: Unchanged Time of 2ND Reevaluation: 21:21 Reevaluation 2ND: Improved Patient Education/Counseling: Diagnosis, Treatment Family Education/Counseling: No Family Present Departure 1 Departure Time of Disposition: 21:21 Impression: Primary Impression: Thrombosis of right cephalic vein Disposition: 01 HOME / SELF CARE / HOMELESS Condition: Stable Discharged With: Self Critical Care Note Critical Care Time?: No Stability Stability form required: No Heart Score Heart Score: Heart Score Response (Comments) Value History N/A 0 EKG N/A 0 Age N/A 0 Risk Factors N/A 0 Troponin N/A 0 Total 0 I personally scribed for ER (EMERGENCY) on 05/29/25 at 20:53. Electronically submitted by Josy Britt ([employer]). I personally scribed for ER (EMERGENCY) on 05/29/25 at 21:00. Electronically submitted by Josy Britt ([employer]). I personally scribed for ER (EMERGENCY) on 05/29/25 at 21:00. Electronically submitted by Josy Britt ([employer]). I personally scribed for ER (EMERGENCY) on 05/29/25 at 21:18. Electronically submitted by Josy Britt ([employer]). ER May 29, 2025 20:53 CHON MOLINA [facility] May 29, 2025 21:21
[2025-05-29 20:54] LABS: Hematocrit 28.8 % (41.0-53.0); Hemoglobin 9.7 g/dL (13.5-17.5); Mean Corpuscular Hemoglobin 28.9 pg (28.0-32.0); Mean Corpuscular Volume 85.8 fL (80.0-100.0); Nucleated Red Blood Cells % 0.1 %
[2025-05-29 21:08] LABS: Alanine Aminotransferase 18 U/L (7-40); Albumin 4.3 g/dL (3.2-4.8); Alkaline Phosphatase 99 U/L (46-116); Anion Gap 10 (5-15); BUN/Creatinine Ratio 10.8 (10.0-20.0); Blood Urea Nitrogen 13 mg/dL (9-23); Calcium 8.9 mg/dL (8.7-10.4); Carbon Dioxide 26 mmol/L (20-31); Chloride 106 mmol/L (98-107); Potassium 4.4 mmol/L (3.5-5.1); Sodium 142 mmol/L (136-145); Total Protein 6.8 g/dL (5.7-8.2)
[2025-05-29 21:09] LABS: Bilirubin, Total 0.5 mg/dL (0.2-1.0)
[2025-05-29 21:14] LABS: Glucose 121 mg/dL (74-106)
[2025-05-29 21:29] VITALS: BP 154/64; PULSE 65; RESP 18; TEMP 98.6; O2SAT 96
== END 2025-05-29 21:31 | disposition home or self-care (01) ==
LOC: ER 19:42
DX: I82.611 Acute embolism and thrombosis of superficial veins of right upper extremity (principal); I10 Essential (primary) hypertension; I25.10 Atherosclerotic heart disease of native coronary artery without angina pectoris; E78.5 Hyperlipidemia, unspecified; Z79.82 Long term (current) use of aspirin; Z79.899 Other long term (current) drug therapy; Z98.890 Other specified postprocedural states
CPT/HCPCS: 36415; 80053; 85025; 85379; 93971